=== PATIENT | female | born 1940 | race Caucasian/White ===

== ENCOUNTER → 2024-08-07 | Outpatient (CLI) | payer MEDICARE ==
--- NOTE | 2024-08-11 08:51 | HMCSR ---
APPROVED REPORT EXAM: Two-dimensional and M-mode echocardiogram with Doppler and color Doppler. WITH VALSALVA INDICATION ICD: Cardiac murmur, unspecified R01.1 2D Dimensions RVDd4.0 cmLVEF(%)55.3 (>50%)LVED Vol(simp.)101.0 mL IVSd0.9 (0.7-1.1cm)FS(%)28 %LVES Vol(simp.)44.0 mL LVDd4.2 (3.8-5.6cm)LA (2D)3.5 (1.6-4.0cm)LVEF(%, simp.)57 % PWd0.9 (0.7-1.1cm)Ao Root(2D)3.2 (2.0-3.7cm)LA ESV INDEX (BP)57.13 mL/m2 LVDs3.0 (2.5-4.0cm)LVOT diam2.1 (1.8-2.4cm) IVC diam1.6 cm Aortic Valve AoV Vmax2.0 m/Breanne Peak GR15.8 mmHgLVOT Vmax0.8 m/s AoV VTI0.5 mAo Mean GR8.8 mmHgLVOT VTI0.20 m NALLELY (VMAX)1.6 cm2AVA (VTI) 1.6 cm2 Mitral Valve MV E Vmax82.8 cm/sDECEL Innb079 ms MV A Vmax93.8 cm/s E/A ratio0.9 MR Max PG135 mmHg TDI E/E' Dxepiv52.9E/E' Kyatgqm06.2 Pulmonary Valve PV Vmax0.9 m/sPV VTI0.18 mPV Mean GR2 mmHg PV Peak GR3.1 mmHgPI End Yasemin. Kamron 0.8 cm/s Tricuspid Valve TR Vmax2.4 m/sRAP (EST) 3 lgEfMTTJ78.8 mmHg TR Peak GR22.8 mmHg Left Ventricle Left ventricular cavity size is normal. There is normal left ventricular wall thickness. LVEF is 55-6 0%. Stage I diastolic dysfunction. Right Ventricle The right ventricle is normal size. The right ventricular systolic function is normal. Atria The left atrium is severely dilated. The right atrium is borderline dilated. Aortic Valve Aortic valve is trileaflet. The aortic valve is calcified and displays decreased opening. No aortic r egurgitation is present. Aortic scleroiss. NALLELY 1.6 cm2, PV 2 m/s,mean pressure gradient of 8.8 mmHg. Mitral Valve Mitral valve leaflets are mildly sclerotic but open well. Mitral regurgitation is moderate. There is no mitral valve stenosis. Tricuspid Valve The tricuspid valve leaflets appear normal. There is trace tricuspid regurgitation. Pulmonic Valve The pulmonic valve leaflets appear normal. There is trace pulmonic valvular regurgitation. Great Vessels The aortic root is normal in size. IVC is normal in size and collapses >50% with inspiration. Pericardium No pericardial effusion. Conclusion Left ventricular cavity size is normal. LVEF is 55-60%. Stage I diastolic dysfunction. The right ventricle is normal size. The right ventricular systolic function is normal. The left atrium is severely dilated. The right atrium is borderline dilated. Aortic valve is trileaflet. The aortic valve is calcified and displays decreased opening. Aortic scleroiss. NALLELY 1.6 cm2, PV 2 m/s,mean pressure gradient of 8.8 mmHg. Mitral regurgitation is moderate. There is trace tricuspid regurgitation. No pericardial effusion.
== END | disposition home or self-care (01) ==
LOC: SHCH 10:57
PROVIDERS: ATTEND Student in an Organized Health Care Education/Training Program
DX: I08.0 Rheumatic disorders of both mitral and aortic valves (principal); R01.1 Cardiac murmur, unspecified
CPT/HCPCS: 93306

== ENCOUNTER 2025-01-06 07:12 | Observation (INO) | payer MEDICARE ==
[2025-01-05 14:44] VITALS: BP 162/57; PULSE 67; RESP 14; TEMP 97.5
[2025-01-05 14:46] LABS: IMMATURE GRANULOCYTE ABSOLUTE 0.03 K/uL (0-1); NUCLEATED RED BLOOD CELLS 0.0 % (0.0-0.19); PLATELET COUNT (AUTO) 215 K/uL (130-400); RED BLOOD CELL COUNT(AUTO) 4.21 MIL/uL (4.00-5.50); RED CELL DISTRIBUTION WIDTH 13.9 % (11.0-15.5); WHITE BLOOD COUNT (AUTO) 6.2 K/uL (4.8-10.8)
[2025-01-05 14:52] LABS: APPEARANCE,URINE CLOUDY (CLEAR); GLUCOSE, URINE (UA) NEGATIVE (NEGATIVE); LEUKOCYTE ESTERASE ,URINE NEGATIVE Leu/uL (NEGATIVE); NITRATE,URINE NEGATIVE (NEGATIVE); OCCULT BLOOD,URINE NEGATIVE (NEGATIVE)
[2025-01-05 14:56] LABS: INR 1.0 (0.85-1.15)
[2025-01-05 14:58] LABS: CREATININE 0.6 mg/dL (0.5-1.0); GLOMERULAR FILTR. RATE CALC 87.0 mL/min (>90); GLUCOSE,RANDOM 89.0 mg/dL (70-105); SODIUM SERUM 142.0 mmol/L (136-145); UREA NITROGEN, BLOOD 15.0 mg/dL (7-18)
[2025-01-05 15:08] LABS: ADD UA MICROSCOPIC YES
--- NOTE | 2025-01-05 15:10 | NUR ---
RE: IS INITIAL IS INITIAL TEACHING DONE BY RT GAIL DURING PREOP.
[2025-01-05 15:11] LABS: SQUAMOUS EPITHELIAL CELL,UR RARE /HPF (0-2)
--- NOTE | 2025-01-05 16:30 | NUR ---
RE: LABS REPORTED UA RESULTS TO DR BETH, RECEIVED ORDERS FOR GENTAMICIN IVPB X 1 DOSE IN OR HOLDING.
[2025-01-06] VITALS (24 sets, daily range): BP systolic 115–173; BP diastolic 50–94; PULSE 63–88; RESP 15–20; TEMP 97.1–98.2; O2SAT 96
[~2025-01-06] VITALS: Ht 165.1 cm; Wt 71.7 kg
[~2025-01-06 07:12] MED LIST: SIMV-43 PO
[2025-01-06] MEDS ORDERED: VANCOMYCIN 500MG+NS 100ML 100 ML IV ONE (07:17)
[2025-01-06] MEDS ORDERED: LIDOCAINE PF 100MG/5ML (2%) SYRINGE 5ML ONE ×2 (10:38→10:39)
[2025-01-06] MEDS ORDERED: SUCCINYLCHOLINE CHLORIDE 20 MG/ML 10 ML VIAL ONE (10:38)
[2025-01-06] MEDS ORDERED: GLYCOPYRROLATE 0.2 MG/ML 5 ML VIAL ONE (10:38)
[2025-01-06] MEDS ORDERED: NEOSTIGMINE METHYLSULFATE 1MG/ML IV ONE (10:38)
[2025-01-06] MEDS ORDERED: TRANEXAMIC ACID 1000MG/10ML ONE (11:07)
[2025-01-06] MEDS: VANCOMYCIN 500MG VIAL IJ ONE (11:54)
[2025-01-06] MEDS ORDERED: PoTASSium chl 10% ELIXIR 20MEQ 20 MEQ/15 ML UDCUP PO PRN (13:30)
[2025-01-06] MEDS ORDERED: PoTASSium chloRIDE 20MEQ ER 20 MEQ ERTAB PO PRN (13:30)
[2025-01-06] MEDS ORDERED: FERROUS FUMARATE 324 MG TABLET PO PRN (13:30)
[2025-01-06] MEDS ORDERED: CALCIUM CARB 500MG PO PRN (13:30)
--- NOTE | 2025-01-06 13:34 | OP ---
Operative Note: DATE OF PROCEDURE: 01/06/25 SURGEON: FAITH BETH MD AUTO BODY MAN: [Gomez Lee [facility]; Annabelle Dolan [facility]] ANESTHESIA: [General anesthesia plus regional block] ANESTHESIOLOGIST/CLINICAL PATHOLOGIST: [Dr. Mendoza] PREOPERATIVE DIAGNOSIS: [Left hip osteoarthritis] POSTOPERATIVE DIAGNOSIS: [Same] IMPLANTS: [BIOMET. Taperloc femoral stem, high offset size 12 mm. Standard femoral head size 36 mm. G7 acetabular cup size 54 mm. G7 high wall liner size 36 mm inner diameter] PROCEDURE: [Left total hip arthroplasty] ESTIMATED BLOOD LOSS: [250 mL] INDICATIONS: [Elderly female with history of severe pain to the left hip that has a longer responded to conservative treatment. Pain due to osteoarthritis. The patient is brought to the operating room for a left total hip arthroplasty, procedure that she understood, risks, benefits and possible complications and agreed to sign the consent form] DESCRIPTION OF PROCEDURE: [After adequate general anesthesia was achieved and regional block obtained the patient was placed in the lateral decubitus with the use of the beanbag and hip holders. The left lower extremity was prepped and draped in the usual manner after x-rays taken with the C-arm were used to check the position of the pelvis. After anatomic landmarks were identified we proceeded to make an incision in the skin centered on the greater trochanter and with a slight curve posteriorly followed by dissection of the subcutaneous tissue with the use of the Bovie cautery. The tensor fascia aubrey and gluteus jessica fascia were then opened longitudinally and the fibers of the gluteus muscle were split manually entering into the deep space applying then the Charnley retractor. The posterior border of the gluteus medius was identified and elevated and a curved Hohmann retractor was inserted underneath to be able to expose the gluteus minimus and short external rotators. The interval between the piriformis and gluteus minimus was open with the use of the Bovie cautery and then the rotators and capsule were detached from their femoral neck insertion and retracted posteriorly entering into the hip joint. At this point a marker was applied in the iliac bone just superior to the acetabulum with the use of drill guide to be able to check the offset and the length of the extremity at the level of the trochanter. Once the marker was made this was passed to the back table. We then proceeded to dislocate the hip by flexing the hip and then internally rotating it and after retractors were applied to the base of the femoral neck we proceeded to use the oscillating saw to cut the neck at this level. Hohmann retractors were then applied anteriorly and posteriorly to the acetabulum removing then the labrum and foveal tissue. We proceeded to ream the acetabulum medializing it obtaining adequate cortico-cancellous bone. After irrigation of the acetabulum was completed we proceeded then to apply the final component and x-rays were taken correcting the orientation of the acetabulum to its final position. Then a trial liner was inserted. We then proceeded to use a box osteotome to enter the canal followed by insertion of the canal finder and then we proceeded to broach from size 4 up to above-mentioned size. At this point we removed the last broach and packed the canal for hemostasis and after the retractors were removed we proceeded then to bring the hip into extension. as well as a trial femur and then we proceeded to apply the trial femoral heads reducing the hip and taken x-rays until we identify the adequate size component using the marker to check the length and offset as well as clinically using the shuck test and measuring the leg length. Once we were satisfied we proceeded to remove the components from the femur and the acetabular trial liner after dislocating the hip and after copious irrigation of the joint was completed we then proceeded to apply the final liner followed by the insertion of the final femoral stem femoral head. Once the hip was reduced we used a marker once again and the leg length and offset were normal and clinically the patient had normal length, negative shuck test and x-rays reveal adequate leg length compared to the opposite hip. The joint was then copiously irrigated with a diluted Betadine solution followed by irrigation with antibiotic solution with jet lavage once again and we then proceeded to take final x-rays and then to close the wound first with approximation of the capsule with #1 Vicryl simple stitches followed by approximation of the short external rotators with #2 PDS suture passing the sutures through the bone. The Charnley retractor was then removed and the gluteus jessica fascia was closed with a #1 Vicryl running stitch and the tensor fascia aubrey with #1 Vicryl crossed stitches. The subcutaneous tissue was closed with #2 Monocryl inverted stitches and the skin was closed with 3-0 Monocryl subcuticularly. A suction dressing was then applied to the incision and the drapes were then removed the patient being placed in the supine position. Leg length was checked and noted to be adequate. The patient was then transferred to a hospital bed and taken to recovery room for follow-up by anesthesia. There were no complications during the procedure.] FAITH BETH MD Jan 06, 2025 13:34
[2025-01-06] MEDS: TRANEXAMIC ACID 1000MG/10ML ONE (14:25)
--- NOTE | 2025-01-06 15:00 | NUR ---
RT contacted for IS post procedure
--- NOTE | 2025-01-06 15:00 | NUR ---
arrived from recovery patient alert and oriented x4, vitals stable, on 3L oxygen via nasal cannula, patient arrived rating pain to LT hip 02/11, neurovascular assessment completed (see documentation)
[2025-01-06] MEDS: LACTATED RINGERS 1000ML 1,000 ML IV ONE (16:27)
--- NOTE | 2025-01-06 16:45 | NUR ---
Attempted PT eval with patient. Pt noted to be sitting up in bed eating her tray of clear liquids. When I asked patient her pain level she stated " I am miserable I dont know if I am in Hell or pergatory" . When I asked her a pain number 0-10 she stated "9" . Then she reports that she told the nurse twice and that the nurse has not come back. I applied ice, SCDS and discussed DC plan with patient. I asked nurse about pain medications and she reports that patient was given medications 1 hour prior, and that she will give another medicine now.
[2025-01-06] MEDS: 0.9%NACL 1000ML 1,000 ML IV SCH (16:49)
--- NOTE | 2025-01-06 17:51 | NUR ---
PT eval completed. Pt needs max cues and redirection. Wants to wait on PT for her belongings, to turn the TV up, to get dressed etc. Education provided that in order to DC home she will need to complete PT eval. Pt agrees. Pt walks to and has several episodes of buckling with therapist assist to prevent fall. Pt voided then return to bed. Education provided on how to use call carreno, POC,DC plan, medication regimen, use of ice ,what SCDS are for and how to use call carreno as well as bed controls . Pt should not walk in night but use BSC since she is fall risk.
[2025-01-06] MEDS: FAMOTIDINE 20MG TAB PO SCH (19:51)
[2025-01-06] MEDS: ASPIRIN 81 MG EC TAB PO SCH (19:51)
[2025-01-07] VITALS (7 sets, daily range): BP systolic 107–137; BP diastolic 49–69; PULSE 70–96; RESP 16–20; TEMP 97.7–98.6; O2SAT 99
[2025-01-07 05:43] LABS: NUCLEATED RED BLOOD CELLS 0.0 % (0.0-0.19); PLATELET COUNT (AUTO) 179.0 K/uL (130-400); RED BLOOD CELL COUNT(AUTO) 3.29 MIL/uL (4.00-5.50); RED CELL DISTRIBUTION WIDTH 13.9 % (11.0-15.5); WHITE BLOOD COUNT (AUTO) 7.8 K/uL (4.8-10.8)
[2025-01-07 05:58] LABS: CREATININE 0.6 mg/dL (0.5-1.0); GLOMERULAR FILTR. RATE CALC 87.0 mL/min (>90); GLUCOSE,RANDOM 110.0 mg/dL (70-105); SODIUM SERUM 139.0 mmol/L (136-145); UREA NITROGEN, BLOOD 14.0 mg/dL (7-18)
--- NOTE | 2025-01-07 07:52 | PN ---
Ortho postop day one. This morning the patient is awake alert and oriented. Reporting little to no pain. Vital signs have been stable. She has been afebrile. She is voiding on her own without difficulty. Laboratory results reviewed noted to have a drop in hemoglobin and hematocrit as expected. Currently patient is asymptomatic we will continue to observe and treat per protocol as necessary. Reinforced incentive spirometry. She has bilateral SCD compression sleeves on. Ice present to the op-site. Dressing is intact. Distal neurovascular intact. Negative Homans. Ambulated within the confines of her room and to the restroom yesterday and is pending further physical therapy this morning. She is anticipating going home with a home health/APC/PT discussed with the patient to not allow her cats to sleep with her and it be best if she has clean sheets since her cats do sleep with her to avoid any infection. Patient voiced understanding. Assessment: Status post left total hip arthroplasty. Acute postoperative blood loss anemia. Plan: Continue with Dr. Macias total hip arthroplasty protocol and discharge planning. Acute postoperative blood loss anemia addressed with the protocol Vitals/Labs Vital Signs Date Time Temp Pulse Resp B/P (MAP) Pulse Ox O2 Delivery O2 Flow Rate FiO2 01/07/25 07:28 97.9 74 18 131/66 95 Room Air 01/06/25 20:45 3.0 01/06/25 20:00 21 Laboratory Tests 01/07/25 05:05 Medications Current Medications Gentamicin Sulfate 1 each ONCE IV; Start 01/06/25 at 07:30; Stop 01/05/25 at 16:59; Status DC Gentamicin Sulfate/Sodium Chloride 100 ml @ 200 mls/hr ONCE ONCE IV Last administered on 01/06/25at 08:31; Start 01/05/25 at 17:00; Stop 01/05/25 at 17:29; Status DC Cefazolin Sodium 1 gm STK-MED ONCE .ROUTE; Start 01/06/25 at 07:17; Stop 01/06/25 at 07:17; Status DC Vancomycin HCl 100 ml @ As Directed STK-MED ONCE IV; Start 01/06/25 at 07:17; Stop 01/06/25 at 07:17; Status DC Cefazolin Sodium 2 gm STK-MED ONCE .ROUTE; Start 01/06/25 at 08:28; Stop 01/06/25 at 08:29; Status DC Lactated Ringer's 1,000 ml @ As Directed STK-MED ONCE IV; Start 01/06/25 at 08:29; Stop 01/06/25 at 08:29; Status DC Lidocaine HCl 100 mg STK-MED ONCE .ROUTE; Start 01/06/25 at 10:38; Stop 01/06/25 at 10:38; Status DC Ondansetron HCl 4 mg STK-MED ONCE .ROUTE; Start 01/06/25 at 10:38; Stop 01/06/25 at 10:38; Status DC Succinylcholine Chloride 200 mg STK-MED ONCE .ROUTE; Start 01/06/25 at 10:38; Stop 01/06/25 at 10:38; Status DC Glycopyrrolate 1 mg STK-MED ONCE .ROUTE; Start 01/06/25 at 10:38; Stop 01/06/25 at 10:39; Status DC Propofol 200 mg STK-MED ONCE IV; Start 01/06/25 at 10:38; Stop 01/06/25 at 10:39; Status DC Neostigmine Methylsulfate 10 mg STK-MED ONCE IV; Start 01/06/25 at 10:38; Stop 01/06/25 at 10:39; Status DC Rocuronium [place] 50 mg STK-MED ONCE .ROUTE; Start 01/06/25 at 10:39; Stop 01/06/25 at 10:39; Status DC Fentanyl Citrate 100 mcg STK-MED ONCE .ROUTE; Start 01/06/25 at 10:39; Stop 01/06/25 at 10:39; Status DC Lidocaine HCl 100 mg STK-MED ONCE .ROUTE; Start 01/06/25 at 10:39; Stop 01/06/25 at 10:39; Status DC Phenylephrine HCl 10 mg STK-MED ONCE IV; Start 01/06/25 at 10:53; Stop 01/06/25 at 10:54; Status DC Tranexamic Acid 1,000 mg STK-MED ONCE .ROUTE; Start 01/06/25 at 11:07; Stop 01/06/25 at 11:07; Status DC Cefazolin Sodium 2 gm STK-MED ONCE IVPB Last administered on 01/06/25at 11:19; Start 01/06/25 at 11:19; Stop 01/06/25 at 11:49; Status DC Tranexamic Acid 1,000 mg STK-MED ONCE IV Last administered on 01/06/25at 11:25; Start 01/06/25 at 11:25; Stop 01/06/25 at 11:49; Status DC Cefazolin Sodium 3 gm STK-MED ONCE IVPB Last administered on 01/06/25at 11:38; Start 01/06/25 at 11:38; Stop 01/06/25 at 11:49; Status DC Vancomycin HCl 500 mg STK-MED ONCE IJ Last administered on 01/06/25at 11:54; Start 01/06/25 at 11:54; Stop 01/06/25 at 11:55; Status DC Ropivacaine 150 mg STK-MED ONCE .ROUTE; Start 01/06/25 at 13:08; Stop 01/06/25 at 13:08; Status DC Dexamethasone Sodium Phosphate 4 mg STK-MED ONCE .ROUTE; Start 01/06/25 at 13:17; Stop 01/06/25 at 13:17; Status DC Sodium Chloride 1,000 ml @ 100 mls/hr Q10H IV Last administered on 01/06/25at 16:49; Start 01/06/25 at 13:30; Stop 01/07/25 at 13:29 Polyethylene Glycol 17 gm DAILY PO; Start 01/07/25 at 09:00; Stop 02/06/25 at 08:59 Bisacodyl 10 mg DAILY PRN RC; Start 01/09/25 at 13:30; Stop 02/08/25 at 13:29 Ketorolac Tromethamine 15 mg Q6H PRN IV Last administered on 01/06/25at 16:47; Start 01/06/25 at 13:30; Stop 01/11/25 at 13:29 Famotidine 20 mg BID PO Last administered on 01/06/25at 19:51; Start 01/06/25 at 21:00; Stop 02/05/25 at 20:59 Ferrous Fumarate 324 mg DAILY PRN PO; Start 01/06/25 at 13:30; Stop 02/05/25 at 13:29 Temazepam 15 mg HS PRN PO; Start 01/06/25 at 13:30; Stop 02/05/25 at 13:29 Calcium Carbonate 500 mg Q12H PRN PO; Start 01/06/25 at 13:30; Stop 02/05/25 at 13:29 Diphenhydramine HCl 25 mg Q6H PRN IVP; Start 01/06/25 at 13:30; Stop 02/05/25 at 13:29 Ondansetron HCl 4 mg Q6H PRN IVP; Start 01/06/25 at 13:30; Stop 02/05/25 at 13:29 Cefazolin Sodium 2 gm Q8H IVP Last administered on 01/07/25at 02:44; Start 01/06/25 at 18:30; Stop 01/07/25 at 02:31; Status DC Potassium Chloride 100 ml @ 100 mls/hr AD PRN IV; Start 01/06/25 at 13:30; Stop 02/05/25 at 13:29 Potassium Chloride 20 meq AD PRN PO; Start 01/06/25 at 13:30; Stop 02/05/25 at 13:29 Potassium Chloride 20 meq AD PRN PO; Start 01/06/25 at 13:30; Stop 02/05/25 at 13:29 Oxycodone HCl 5 mg Q4H PRN PO; Start 01/06/25 at 13:30; Stop 01/13/25 at 13:29 Oxycodone HCl 10 mg Q4H PRN PO Last administered on 01/06/25at 15:26; Start 01/06/25 at 13:30; Stop 01/13/25 at 13:29 Tramadol HCl 50 mg Q6H PRN PO; Start 01/06/25 at 13:30; Stop 01/11/25 at 13:29 Acetaminophen 1,000 mg Q8H PO Last administered on 01/07/25at 05:01; Start 01/06/25 at 13:30; Stop 02/05/25 at 13:29 Aspirin 81 mg BID PO Last administered on 01/06/25at 19:51; Start 01/06/25 at 21:00; Stop 02/05/25 at 20:59 Fentanyl Citrate 100 mcg STK-MED ONCE .ROUTE Last administered on 01/06/25at 14:16; Start 01/06/25 at 14:13; Stop 01/06/25 at 14:13; Status DC Tranexamic Acid 1,000 mg STK-MED ONCE .ROUTE Last administered on 01/06/25at 14:25; Start 01/06/25 at 14:21; Stop 01/06/25 at 14:21; Status DC Simvastatin 20 mg HS PO Last administered on 01/06/25at 21:29; Start 01/06/25 at 21:00; Stop 02/05/25 at 20:59 COLTEN JONES NP Jan 07, 2025 07:52
--- NOTE | 2025-01-07 11:27 | NUR ---
[facility] CM MET WITH PT YESTERDAY EVENING, INITIAL ASSESSMENT DONE. PATIENT IS INDEPENDENT PRIOR TO SURGERY, LIVES AT HOME WITH HER SPOUSE. PT HAS OWN CURRENT WALKER AT HOME PRIOR TO SURGERY, DENIES ANY OTHER EQUIPMENT/SERVICES. FEELS SAFE TO GO BACK HOME, STILL DRIVE, SON AVAILABLE IN CASE OF EMERGENCY BY PHONE, ARRANGES OWN NEEDS, FRIENDS ABLE TO ASSIST WITH TRANSPORTATION NECESSARY. DISCUSSED MD RECOMMENDATIONS FOR HOME W/HH FOR PT, PATIENT ALREADY HAS A CURRENT WORKING WALKER, GIVEN IN [facility], PT AGREEABLE SIGNED CONSENT FOR [facility]. THIS CM SENT REQUEST TO [facility] YESTERDAY, AND RECEIVED APPROVAL THIS MORNING, HOWEVER PATIENT REQUESTED FOR CM TO RE-VISIT AND VERBALIZED SHE CHANGED HER MIND. HER IS CURRENTLY AT [facility] AND SHE VERBALIZED PT TALKED TO HER THIS MORNING AND VERBALIZED IT WOULD BE SAFER FOR HER TO GO TO SHORT TERM REHAB, PT VERBALIZED SHE WOULD LIKE TO DO SHORT TERM REHAB AT [facility]. PT SIGNED CONSENT DOMINIC. INFORMED PT WILL SEND TO [facility] AND UPDATE DR BETH OF PT'S REQUEST. DR BETH UPDATED. [facility] ONCE APPROVED. CM TO CONTINUE TO FOLLOW UP. Addendum: 01/07/25 at 1154 by EDUARDO CASTORENA LVN Amended: Links added.
--- NOTE | 2025-01-07 16:45 | NUR ---
Ortho Coordinator: Teaching regarding DVT and pneumonia prevention, pain expectations and pain management. Patient in bed. Patient eating dinner. Patient reports pain currently controlled, B SCD sleeves in place and functioning. HOLLEY dressing dry and intact, functioning as evidenced by light blinking green. Incentive spirometer at bedside. Patient verbalized proper frequency of use of incentive spirometer, rationale provided. Patient return demonstrated proper foot flexion and extension exercises, rationale provided. Pain management strategy reviewed. Patient agreed to call out for pain medication using numeric pain scale and type of pain. Patient intends to discharge to rehab. Reviewed expectations for rehab. Questions answered. Patient instructed to continue pre-medicating prior to physical therapy and periods of high activity, continue incentive spirometer until reaches pre-surgery activity level and to continue foot flexion and extension exercises once discharged. Set expectation for patient to shower today, rationale provided. Reviewed care of HOLLEY dressing, questions answered. Patient verbalized understanding to all instructions. [id number] Discussed plan of care with primary care team.
[2025-01-08 03:48] VITALS: BP 155/56; PULSE 83; RESP 20; TEMP 98
[2025-01-08 07:35] VITALS: O2SAT 97
[2025-01-08 07:48] VITALS: BP 96/64; PULSE 89; RESP 20; TEMP 98.3
[2025-01-08 08:15] VITALS: BP 136/60; PULSE 87
[2025-01-08 11:08] VITALS: BP 123/65; PULSE 81; RESP 18; TEMP 98.3
[2025-01-08] MEDS ORDERED: AEC81 PO (17:03)
[2025-01-08] MEDS ORDERED: OXYC-38 PO (17:03)
--- NOTE | 2025-01-08 17:11 | DS ---
DISCHARGE SUMMARY [Date of admission: 01/06/2025 Date of discharge: 01/08/2025 Final diagnosis: Left hip osteoarthritis Surgical procedures: Left total hip arthroplasty on 01/06/2025 Summary of History and Physical: The patient is an 84 year-old female with history of severe arthrosis to the left hip that has been present for several years and has been treated conservatively with no longer adequate response to treatment. The patient is being admitted for total hip arthroplasty. Previous medical history: Hypercholesterolemia Previous surgical history: Tonsillectomy, bilateral total knee arthroplasty Family history: Heart disease, cancer Social history: Negative for use of tobacco or alcohol. Allergies: Sulfa drugs Review of system: Negative on admission Hospital course: The patient was admitted and taken to the operating room for a left total hip arthroplasty, procedure that went uneventful. Postoperatively the patient remained hemodynamically stable and afebrile. The patient received antibiotic and anticoagulation prophylaxis as per protocol. The patient was evaluated by physical therapy and started rehabilitation treatment with ambulation with the use of walker, weightbearing as tolerated, posterior hip precautions, range of motion exercises and bed transfers. The patient was also evaluated by case management and arrangements were made for discharge . The patient tolerated diet well. On postop day #2 all the arrangements were completed for her to be discharged to a nursing facilityand the patient was dismissed . Condition on discharge: Good Disposition: The patient will be dismissed to a correction . Follow-up will be done at the office in 3 weeks. The patient is to continue with physical therapy and rehabilitation at the facility and be ambulatory with the use of a walker, weightbearing as tolerated and continue with hip precautions. Continue taking pain medication as instructed as well as anticoagulation prophylaxis. Continue with home medications also as instructed and continue with pre admission diet.] FAITH BETH MD, JOSE A MD Jan 08, 2025 17:11
--- NOTE | 2025-01-08 19:50 | NUR ---
DISCHARGE INSTRUCTION PROVIDED TO PATIENT. PATIENT VERBALIZED UNDERSTANDING . REPORT CALLED TO [facility] ,SPOKE WITH NURSE BLANTON .
== END 2025-01-08 18:15 ==
LOC: DAH 07:12 → DAHIP 07:13 → DAH 07:13 → 4AH 15:00
PROVIDERS: ADMIT Orthopaedic Surgery; ATTEND Orthopaedic Surgery
DX: M16.12 Unilateral primary osteoarthritis, left hip (principal); M25.552 Pain in left hip; E78.00 Pure hypercholesterolemia, unspecified; I10 Essential (primary) hypertension; Z79.899 Other long term (current) drug therapy; Z98.890 Other specified postprocedural states
CPT/HCPCS: 80048 ×2; 85025; 85610; 86850; 86900; 86901; 87086; 81001; 36415 ×2; 87641; 97161 ×3; 27130; 96365; 96366 ×2; 96375; 96367; 88311; 88304; 73503; 97116 ×5; 97530 ×6; 85027; J1580; J1100; G0378 ×53; A4600 ×2; A4223 ×2; C1713 ×2; A4663; J0690 ×6; J7120; J3010 ×2; J3490 ×5; J0330; J2003 ×2; J2704; J2405; J2710; J2795; J1885; J2371; J3373 ×2; A4649 ×4; A9272; A4930 ×3; C1776; A5120; A4215 ×2; A4213; A4222; A4221; A4216

== ENCOUNTER 2025-01-22 18:10 | Inpatient (IN) | payer MEDICARE ==
[~2025-01-22] VITALS: Ht 165.1 cm; Wt 73.9 kg
[~2025-01-22 18:10] MED LIST changes: +AEC81 PO; +OXYC-38 PO
--- NOTE | 2025-01-22 18:19 | ERN ---
ED Note History of Present Illness Stated Complaint: FALL Chief Complaint: Mechanical Fall Time Seen by MD: 18:15 Dictation: PATIENT IS AN 84-YEAR-OLD FEMALE COMING IN VIA EMS WITH SAME LEVEL TRIP AND FALL 1 HOUR PRIOR TO ARRIVAL. SHE LANDED ON HER LEFT HIP WHICH WE WILL HAD RECENT SURGERY BY DR. FAITH BETH TWO WEEKS AGO. SHE IS HAVING SEVERE LEFT HIP PAIN WITH SHORTENING AND ROTATION OF THE LEFT HIP ALSO LEFT KNEE PAIN. DISTAL NEUROVASCULAR CMS GROSSLY INTACT. NO HEAD INJURY NO BACK PAIN NO BLOOD THINNERS AND NO TRAUMA ALERT CRITERIA AT THIS TIME. Allergies: Coded Allergies: Sulfa (Sulfonamide Antibiotics) (Unverified Allergy, Unknown, 01/05/25) Home Meds Active Scripts Oxycodone HCl/Acetaminophen (Percocet 5-325 mg Tablet) 5 Mg-325 Mg Tablet, 1-2 EACH PO Q8H for ACUTE POST-OP PAIN (G89,18) for 7 Days, #42 TAB 0 Refills Prov:FAITH BETH MD 01/08/25 Aspirin (ASPIRIN 81 MG ECTAB) 81 Mg Ectab, 81 MG PO BID for DVT PROPHYLAXIS for 30 Days, #60 TAB.EC 0 Refills Prov:FAITH BETH MD 01/08/25 Reported Medications Simvastatin (Simvastatin) 20 Mg Tablet, 1 TAB PO HS for 30 Days, #30 TAB 0 Refills 01/22/25 Simvastatin (Simvastatin) 20 Mg Tablet, 20 MG PO HS, TAB 01/05/25 Past Medical History Past Medical History: High Cholesterol Surgical History: Other Surgical History Other: BILATERAL KNEE REPLACEMENT History: Not Applicable RN Note Reviewed/Agreed w/PFSH: Yes Review of System Dictation CONSTITUTIONAL: NEGATIVE EXCEPT FOR HPI HEAD/FACE: NEGATIVE EXCEPT FOR HPI EENT: NEGATIVE EXCEPT FOR HPI RESPIRATORY: NEGATIVE EXCEPT FOR HPI GASTROINTESTINAL/ABDOMINAL: NEGATIVE EXCEPT FOR HPI GENITOURINARY: NEGATIVE EXCEPT FOR HPI MUSCULOSKELETAL: NEGATIVE EXCEPT FOR HPI LEFT HIP AND KNEE PAIN INTEGUMENTARY: NEGATIVE EXCEPT FOR HPI NEUROLOGICAL/PSYCH: NEGATIVE EXCEPT FOR HPI HEMATOLOGIC/LYMPHATIC: NEGATIVE EXCEPT FOR HPI ALL SYSTEMS NEGATIVE, EXCEPT NOTED ABOVE. 13 POINT REVIEW OF SYSTEMS ASSESSED AND ALL NEGATIVE EXCEPT FOR ABOVE. Initial Vital Sign VS Vital Signs Date Time Temp Pulse Resp B/P (MAP) Pulse Ox O2 Delivery O2 Flow Rate FiO2 01/22/25 18:11 98.2 78 18 167/69 99 Room Air 0 01/22/25 20:06 21 Physical Exam Dictation VITAL SIGNS REVIEWED GENERAL APPEARANCE: ALERT, ORIENTED X 3, MILD ACUTE DISTRESS, WELL DEVELOPED, NOURISHED. HEAD AND FACE: NON-TRAUMATIC. NO TRAUMA TO HEAD EYES: PERRL, PINK CONJUNCTIVAS, EYELID NO TRAUMA, ANTERIOR CHAMBER WITH ARCUS SENILIS. EARS: PINNAS INTACT AND NO SIGNS OF TRAUMA OR ERYTHEMA EAR CANALS CLEAR AND NO DISCHARGE TM NO ERYTHEMA NOSE: NO DISCHARGE, NO BLEEDING. OROPHARYNX: MOUTH NORMAL, TONGUE PINK, PHARYNX CLEAR,NO ERYTHEMA, TONSILS NO EXUDATES, NO ABSCESSES NOTED, MUCOUS MEMBRANE MOIST NECK: SUPPLE, NON-TENDER, NO THYROMEGALY, NO MASSES, NO JVD, NO BRUITS BREAST:DEFERRED CHEST:NO TENDERNESS, NO CREPITUS, NO PARADOXICAL MOVEMENT, NO RETRACTIONS LUNGS:CLEAR, WELL-VENTILATED, SYMMETRIC, NO RALES, NO WHEEZING, NO RHONCHI, NO STRIDOR, GOOD BREATH SOUNDS BILATERALLY HEART: REGULAR RATE, REGULAR RHYTHM, NO MURMUR, NO GALLOPS VASCULAR: NO PERIPHERAL EDEMA, ABDOMEN: SOFT, POSITIVE BOWEL SOUNDS, NONDISTENDED, NO GUARDING, NONTENDER, NO REBOUND, NO MASSES NO HEPATOMEGALY, NO SPLENOMEGALY, NO SHAW'S SIGN, NO HERNIAS. RECTAL: DEFERRED GENITAL: DEFERRED NEUROLOGICAL: NORMAL SPEECH, MOTOR FUNCTION INTACT, SENSORY FUNCTION INTACT MUSCULOSKELETAL: NECK NONTENDER, FULL RANGE OF MOTION, BACK NONTENDER, FULL RANGE OF MOTION, NO SPINE PAIN EXTREMITIES: LEFT ANTEROLATERAL HIP AND PELVIC PAIN. SHORTENING AND ROTATION OF LEFT LEG INTERNALLY ALSO LEFT KNEE PAIN. DISTAL NEUROVASCULAR CMS GROSSLY INTACT. SKIN: COLOR PINK, DRY, NO TURGOR, NO RASH, NO LACERATIONS, NO ABRASIONS, NO CONTUSIONS. LYMPHATIC: DEFERRED Results (Laboratory/Radiology) Laboratory/Radiology Laboratory Tests Test 01/22/25 19:25 White Blood Count 9.3 K/uL (4.8-10.8) Red Blood Count 3.49 MIL/uL (4.00-5.50) L Hemoglobin 10.9 g/dL (12.0-16.0) L Hematocrit 33.2 % (36-48) L Mean Corpuscular Volume 95.1 fL (79-99) Mean Corpuscular Hemoglobin 31.2 pg (27.0-33.0) Mean Corpuscular Hemoglobin Concent 32.8 g/dL (32.0-36.0) Red Cell Distribution Width 14.0 % (11.0-15.5) Platelet Count 422 K/uL (130-400) H Mean Platelet Volume 10.3 fL (7.5-10.5) Immature Granulocyte % (Auto) 0.8 % (0-1) Neutrophils (%) (Auto) 79.8 % (40.0-77.0) H Lymphocytes (%) (Auto) 11.4 % (21.0-51.0) L Monocytes (%) (Auto) 6.8 % (3.0-13.0) Eosinophils (%) (Auto) 0.8 % (0.0-8.0) Basophils (%) (Auto) 0.4 % (0.0-5.0) Neutrophils # (Auto) 7.5 K/uL (1.8-7.7) Lymphocytes # (Auto) 1.1 K/uL (1.0-4.8) Monocytes # (Auto) 0.6 K/uL (0.1-1.0) Eosinophils # (Auto) 0.07 K/uL (0.00-0.70) Basophils # (Auto) 0.04 K/uL (0.00-0.20) Absolute Immature Granulocyte (auto 0.07 K/uL (0-1) Nucleated Red Blood Cells 0.0 % (0.0-0.19) Prothrombin Time 10.7 SEC (9.6-11.6) Prothromb Time International Ratio 1.01 (0.85-1.15) Activated Partial Thromboplast Time 26.2 SEC (26.3-35.5) L Sodium Level 140 mmol/L (136-145) Potassium Level 4.1 mmol/L (3.5-5.1) Chloride Level 104 mmol/L (101-111) Carbon Dioxide Level 31 mmol/L (21-32) Blood Urea Nitrogen 19 mg/dL (7-18) H Creatinine 0.7 mg/dL (0.5-1.0) Glomerular Filtration Rate Calc 84 mL/min (>90) Random Glucose 111 mg/dL (70-105) H Total Calcium 9.4 mg/dL (8.5-10.1) Labs Reviewed?: Yes EKG Comment: EKG SINUS RHYTHM/HEART RATE 72/RIGHT BUNDLE BRANCH BLOCK/LEFT VENTRICULAR HYPERTROPHY. ED Course ED Course Orders Procedure Category Date Status Time Hip Unilat 2-3vw Left RAD 01/22/25 Taken 18:16 Knee 3vws Lt RAD 01/22/25 Taken 18:16 Pelvis 1-2vws RAD 01/22/25 Logged 18:16 12 Lead Ekg Tracing- EKG 01/22/25 Logged Technical 19:11 Cbc With Differential LAB 01/22/25 Complete 19:12 Basic Metabolic Panel LAB 01/22/25 Complete 19:12 Pt And Ptt LAB 01/22/25 Complete 19:12 Type And Screen BBK 01/22/25 Complete 19:12 Morphine 2mg Syg PHA 01/22/25 In Process (Morphine 2mg Syg) 20:00 Ondansetron 4mg Inj PHA 01/22/25 In Process (Zofran 4mg Inj) 20:00 Nurse Driven Monroy LUIS ANGEL 01/22/25 In Process Removal Pro 20:07 Orthopedic Surgery CONPHYSVC 01/22/25 Transmitted Consult 20:08 Npo After Midnight LUIS ANGEL 01/22/25 Transmitted 20:08 Urinalysis Profile LAB 01/22/25 Verified 20:10 Morphine 4mg Ivp X1 PHA 01/22/25 Verified Dose 20:30 Current Medications Medications (Trade) Dose Ordered Sig/Vandana Route PRN Reason Start Time Stop Time Status Last Admin Dose Admin Morphine Sulfate (morPHINE 2MG SYG) 2 mg ONCE IVP 01/22/25 20:00 01/22/25 23:59 01/22/25 20:05 Ondansetron HCl (zoFRAN 4MG INJ) 4 mg ONCE IVP 01/22/25 20:00 01/22/25 23:59 01/22/25 20:05 Vital Signs Date Time Temp Pulse Resp B/P (MAP) Pulse Ox O2 Delivery O2 Flow Rate FiO2 01/22/25 20:06 77 18 175/76 98 Room Air* 0 21 01/22/25 18:11 98.2 78 18 167/69 99 Room Air 0 2017/SPOKE WITH DR. FAITH BETH/ORTHOPEDIC SURGEON AND HE IS AWARE OF THE FRACTURE AND HAS SEEN THE IMAGES. HE WANTS PATIENT HAVE NPO AFTER MIDNIGHT, PREOPERATIVE LABS TO INCLUDE COAGS CHEST X-RAY. SAID HE WILL SEE YOUR IN THE MORNING. THIS WAS EXPLAINED TO PATIENT AND SHE IS AWARE THAT SHE HAS REFRACTURED THE LEFT HIP. ALL QUESTIONS ANSWERED. SPOKE WITH [facility] AND REVIEWED EKG LABS X-RAYS AND SHE IS AWARE THE PATIENT IS NPO AFTER MIDNIGHT FOR SURGERY TOMORROW. Medical Decision Making MDM MDM: DIFFERENTIAL DIAGNOSIS: LEFT KNEE FRACTURE/LEFT HIP FRACTURE/ACS/AMI/ELECTR OLYTE IMBALANCE/DEHYDRATION/UTI RATIONALE: TESTS CONSIDERED AND ORDERED SECONDARY TO SHARED DECISION MAKING INCLUDE: LABS, ECG AND RADIOLOGY PREVIOUS OUTSIDE RECORDS REVIEWED: OLD ER VISITS. RISK OF COMPLICATION AND/OR MORBIDITY OR MORTALITY OF PATIENT MANAGEMENT: MODERATE MEDICATIONS-PER MEDICATION RECONCILIATION NEED FOR HOSPITALIZATION: PATIENT DOES MEET CRITERIA FOR HOSPITALIZATION. NPO AFTER MIDNIGHT FOR REVISION OF LEFT HIP REPLACEMENT TOMORROW NEED FOR EMERGENCY MAJOR/MINOR SURGERY: YES THERE ARE NO SOCIAL CONCERNS WITH THIS PATIENT. PRESCRIPTION DRUG MANAGEMENT PRESCRIPTIONS WILL INCLUDE SYMPTOMATIC CARE PATIENT'S PRIOR EXTERNAL MEDICAL RECORDS FROM OTHER ER VISITS WERE REVIEWED BY ME INDICATED. PRIOR TESTING AND RESULTS FROM PREVIOUS VISITS WERE REVIEWED. PRIOR TESTS WERE TAKEN INTO ACCOUNT WITH MEDICAL DECISION MAKING AND RESOURCE UTILIZATION, INDEPENDENT HISTORIAN/HISTORIANS WERE USED TO OBTAIN COMPLETE MEDICAL HISTORY. I INDEPENDENTLY INTERPRETED THE TEST THAT WERE PERFORMED, RESULTS WERE REVIEWED BY ME AND CONSIDERED FINDINGS ON RADIOLOGY IF ORDERED. MEDICAL MANAGEMENT AND EXAMINATION INTERPRETATION DISCUSSIONS WERE HAD BY ME WITH OTHER QUALIFIED HEALTHCARE PROFESSIONALS INDICATED FOR THE PATIENT'S CARE. DX & DISP Disposition: Discharge Departure Impression: Primary Impression: Fracture of left hip Additional Impressions: Status post left hip replacement, Contusion of left knee, initial encounter, Mild dehydration, Hyperglycemia, Fall, Chronic anemia Condition: Stable Referrals: ARBIL SALDANA MD (PCP) Time of Disposition: 20:20 I have reviewed the case, and I agree with, Diagnosis and Plan SANTIAGO CHANDRA CONTINUING EDUCATION DIRECTOR Jan 22, 2025 18:19
[2025-01-22 19:39] LABS: IMMATURE GRANULOCYTE ABSOLUTE 0.07 K/uL (0-1); NUCLEATED RED BLOOD CELLS 0.0 % (0.0-0.19); PLATELET COUNT (AUTO) 422 K/uL (130-400); RED BLOOD CELL COUNT(AUTO) 3.49 MIL/uL (4.00-5.50); RED CELL DISTRIBUTION WIDTH 14.0 % (11.0-15.5); WHITE BLOOD COUNT (AUTO) 9.3 K/uL (4.8-10.8)
[2025-01-22 19:55] LABS: CREATININE 0.7 mg/dL (0.5-1.0); GLOMERULAR FILTR. RATE CALC 84.0 mL/min (>90); GLUCOSE,RANDOM 111.0 mg/dL (70-105); SODIUM SERUM 140.0 mmol/L (136-145); UREA NITROGEN, BLOOD 19.0 mg/dL (7-18)
[2025-01-22 19:58] LABS: INR 1.01 (0.85-1.15)
[2025-01-22] MEDS ORDERED: SIMV-43 PO (20:14)
--- NOTE | 2025-01-22 20:37 | HMCIMG ---
EXAM: CR left knee, 3 View. CLINICAL HISTORY: LEFT KNEE PAIN STATUS POST SAME LEVEL TRIP FALL COMPARISON: None provided. FINDINGS: Cemented left total knee arthroplasty is in near anatomic alignment. No periprosthetic fractures appreciated. Left knee joint effusion. Infrapatellar bursitis. IMPRESSION: 1. No acute findings in the setting of left total knee arthroplasty. 2. Left knee joint effusion and infrapatellar bursitis. /[place]
--- NOTE | 2025-01-22 20:38 | HMCIMG ---
EXAM: CR left hip, 2 View. CLINICAL HISTORY: HIP PAIN WITH SHORTENING OR ROTATION LEFT LEG COMPARISON: None provided. FINDINGS: Mildly displaced periprosthetic fracture extending from the intertrochanteric region to the medial cortex of the proximal diaphysis. Recommend CT imaging for further evaluation. IMPRESSION: 1. Mildly displaced periprosthetic fracture of the left proximal femur extending from the intertrochanteric region to the proximal diaphysis. CT imaging recommended for further evaluation. /[place]
[2025-01-22] MEDS ORDERED: HYDROcodone/APAP 5/325 1 TAB TABLET PO PRN (21:00)
[2025-01-22] MEDS ORDERED: LACTULOSE 20 GM/30 ML UDCUP PO PRN (21:00)
--- NOTE | 2025-01-22 21:13 | HMCIMG ---
EXAM: CR Chest, 1 View. CLINICAL HISTORY: SOB/COUGH COMPARISON: None provided. FINDINGS: LUNGS: There is no mass, infiltrate, or acute pulmonary abnormality. PLEURAL SPACES: No pleural effusion or pneumothorax. MEDIASTINUM: Mild cardiomegaly. Pulmonary vasculature and interstitial markings are within normal limits. Atherosclerosis of the thoracic aorta. BONES: No acute osseous abnormality. IMPRESSION: 1. Mild cardiomegaly. /[place]
[2025-01-22 21:14] LABS: ADD UA MICROSCOPIC YES; APPEARANCE,URINE CLEAR (CLEAR); GLUCOSE, URINE (UA) NEGATIVE (NEGATIVE); LEUKOCYTE ESTERASE ,URINE NEGATIVE Leu/uL (NEGATIVE); NITRATE,URINE NEGATIVE (NEGATIVE); OCCULT BLOOD,URINE NEGATIVE (NEGATIVE)
[2025-01-22] MEDS: FAMOTIDINE 20MG VIAL IV SCH (21:14)
[2025-01-22] MEDS: LACTATED RINGERS 1000ML 1,000 ML IV SCH (21:15)
[2025-01-22 21:16] LABS: SQUAMOUS EPITHELIAL CELL,UR RARE /HPF (0-2)
--- NOTE | 2025-01-23 00:44 | HMCIMG ---
EXAM: CR Pelvis, 1 view CLINICAL HISTORY: Pain. Fall. COMPARISON: Radiograph of the left hip from the same date. FINDINGS: Mildly displaced periprosthetic fracture extending from the intertrochanteric region to the medial cortex of the proximal diaphysis. Mild osteopenia. Mild degenerative changes in the right hip, bilateral sacroiliac, and symphysis pubis joints. IMPRESSION: Mildly displaced periprosthetic fracture of the left proximal femur extending from the intertrochanteric region to the proximal diaphysis. Similar findings on the recent radiograph of the left hip. /[place]
--- NOTE | 2025-01-23 06:31 | EKG ---
[facility] Test Date: 2025-01-22 Test Time: 19:15:19 Pat Name: MOHSEN LA Department: EDHIP Room: ED 15 Gender: F Worm Picker: [id number] [phone] [id number] Requested By: SANTIAGO CHANDRA Order Number: [id number] Reading MD: Bobby Shearer Measurements Intervals [place] Rate: 72 P: 14 TN: 145 QRS: 16 QRSD: 149 T: 18 QT: 438 QTc: 479 Interpretive Statements Sinus rhythm Right bundle branch block Probable left ventricular hypertrophy No previous ECG available for comparison Electronically Signed On 01-23-2025 13:23:34 CDT by Bobby Shearer Please click the below link to view image of tracing.
[2025-01-23 07:44] LABS: IMMATURE GRANULOCYTE ABSOLUTE 0.05 K/uL (0-1); NUCLEATED RED BLOOD CELLS 0.0 % (0.0-0.19); PLATELET COUNT (AUTO) 340 K/uL (130-400); RED BLOOD CELL COUNT(AUTO) 3.12 MIL/uL (4.00-5.50); RED CELL DISTRIBUTION WIDTH 14.1 % (11.0-15.5); WHITE BLOOD COUNT (AUTO) 8.4 K/uL (4.8-10.8)
[2025-01-23 08:13] LABS: ASPARTATE AMINOTRANSFERASE 19.0 U/L (10-37); CREATININE 0.7 mg/dL (0.5-1.0); GLOMERULAR FILTR. RATE CALC 84.0 mL/min (>90); GLUCOSE,RANDOM 103.0 mg/dL (70-105); PHOSPHORUS 3.5 mg/dL (2.5-4.9); SODIUM SERUM 142.0 mmol/L (136-145); TOTAL PROTEIN, SERUM 5.9 g/dL (6.0-8.3); UREA NITROGEN, BLOOD 15.0 mg/dL (7-18)
--- NOTE | 2025-01-23 13:00 | HP ---
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 Macias, HLD, tonsillectomy, bilateral knee arthroplasty, who came to emergency department s/p fall. Patient stated that two was driving a golf cart back to her home and while trying to get to home she stepped into a hole and she fell forward and landed on her hands. Patient denies hitting head. Patient stated that she heard a pop and severe pain and her daughter who was standing close to her call 911. She was brought to [facility] for further evaluation. X-ray of hip/pelvis was performed and showed markedly displaced fracture prosthesis of the left proximal femur extending from intertroch cleared region to proximal diaphysis. Pelvis x-ray showed mildly displaced periprosthetic fracture of the left proximal femur extending from the left intertrochanteric region to the proximal diaphysis. Similar findings on the recent radiology of the left hip. Knee x-ray showed no acute findings in the settings of the left total knee arthroplasty. Left knee joint effusion and infrapatellar bursitis. Chest x-ray showed mild cardiomegaly. Dr. Macias was consulted to evaluate the patient. Most recent vital signs temperature 98.8 pulse 66 respiration 18 blood pressure 120/45 patient is on room air satting 94%. WBC 8.4 Hemoglobin 9.6 hematocrit 30.4 Platelets 340 UA negative . [id number] potassium 5.1 CO2 32 BUN 15 cre atinine 0.7 GFR random glucose 103 magnesium 2.1 Calcium 8.9 hemoglobin A1c 5.0 albumin 2.9 bilirubin 0.5 AST 19 ALT 14 Patient will be admitted under hospitalist care for further evaluation/recommendation. A.m. labs. REVIEW OF SYSTEMS CONSTITUTIONAL: Denies fevers, chills, or night sweats. No unintentional weight loss reported. NEUROLOGICAL: Denies headache, amaurosis fugax, motor weakness, sensory deficit, vertigo/spinning sensation, gait abnormalities, or tremors. ENT: No hearing loss, otalgia, otorrhea, rhinitis, rhinorrhea, hoarseness, or sore throat. CARDIOVASCULAR: Denies any exertional angina, dyspnea on exertion, orthopnea, paroxysmal nocturnal dyspnea, palpitations, life-threatening arrhythmias, claudication. PULMONARY: Denies any shortness of breath, cough, phlegm/sputum, hemoptysis, pleuritic chest pain. SLEEP: Denies morning headaches, daytime somnolence or napping. Denies difficulty falling asleep, staying asleep, waking from sleep. Denies knowledge of snoring. GASTROINTESTINAL: Denies any type of dysphagia to either liquids or solids. Denies nausea, vomiting, pyrosis, early satiety, abdominal pain, diarrhea, constipation, or changes in stool consistency or caliber. Denies coffee-ground emesis, hematemesis, hematochezia, or melanotic stools. GENITOURINARY: Denies frequency, urgency, nocturia, hematuria or incontinence (Storage/Irritative symptoms.) Low urinary stream, straining to void, urinary intermittency or hesitancy, splitting of the voiding stream, terminal dribbling. ENDOCRINOLOGIC: Denies polyuria, polydipsia, polyphagia or heat/cold intolerances. HEMATOLOGIC: Denies thrombophilia/previous clots, or coagulopathy/bleeding disorders. ONCOLOGIC: Denies personal history of malignancy. DERMATOLOGIC: Denies rashes or pruritus. PSYCHIATRIC: Denies any suicidal or homicidal ideation. Denies hallucinations. PAST MEDICAL HISTORY: [ Left hip arthro arthritis, HLD, ] PAST SURGICAL HISTORY: [ Bilateral knee arthroplasty, left total hip arthroplasty ] PAST SOCIAL HISTORY: [ Patient denies smoking. Patient denies any drug illicit. Patient denies any alcohol illicit.] FAMILY HISTORY: [ Patient lives at home with her who has advanced Alzheimer and is on hospice. ] Coded Allergies: Sulfa (Sulfonamide Antibiotics) (Unverified Allergy, Unknown, 01/05/25) PHYSICAL EXAM GENERAL APPEARANCE: The patient is awake, alert, and oriented, in no acute cardiopulmonary distress. NEUROLOGICAL: Cranial nerves II-XII grossly intact. Motor is 5/5 in bilateral upper and lower extremities proximal to distal. No sensory deficits. HEENT: Face is symmetric. Pupils are equal and reactive. Extraocular movements are intact. NECK: Supple. No JVD. No thyromegaly. No submental, submandibular, pre- /postauricular, occipital or supraclavicular lymphadenopathy. CHEST: Normal chest expansion. No Telemetry. LUNGS: Absence of any rales, rhonchi or any wheezing. CARDIOVASCULAR: Regular. S1 and S2 normal. No appreciable rubs, murmurs or gallops. ABDOMEN: Soft, nontender, and nondistended. There is no rebound, voluntary guarding, or rigidity. : Deferred. No Monroy. EXTREMITIES: Non-edematous and not cyanotic. No clubbing. Good capillary ref ill. Complains of left hip pain s/p fall SKIN: No skin breakdown. Vital Sign (Last 24 Hours) 01/23/25 11:33 Temp 98.8 Pulse 66 Resp 13 B/P (MAP) 120/45 Pulse Ox 94 O2 Delivery Room Air* O2 Flow Rate 0 FiO2 21 LABS: Laboratory: Test 01/23/25 11:17 01/23/25 07:13 01/22/25 21:04 01/22/25 19:25 Range/Units Whole Blood Glucose 95 70-110 MG/DL White Blood Count 8.4 4.8-10.8 K/uL Red Blood Count 3.12 L 4.00-5.50 MIL/uL Hemoglobin 9.6 L 12.0-16.0 g/dL Hematocrit 30.4 L 36-48 % Mean Corpuscular Volume 97.4 79-99 fL Mean Corpuscular Hemoglobin 30.8 27.0-33.0 pg Mean Corpuscular Hemoglobin Concent 31.6 L 32.0-36.0 g/dL Red Cell Distribution Width 14.1 11.0-15.5 % Platelet Count 340 130-400 K/uL Mean Platelet Volume 10.5 7.5-10.5 fL Immature Granulocyte % (Auto) 0.6 0-1 % Neutrophils (%) (Auto) 78.5 H 40.0-77.0 % Lymphocytes (%) (Auto) 11.0 L 21.0-51.0 % Monocytes (%) (Auto) 8.5 3.0-13.0 % Eosinophils (%) (Auto) 1.0 0.0-8.0 % Basophils (%) (Auto) 0.4 0.0-5.0 % Neutrophils # (Auto) 6.6 1.8-7.7 K/uL Lymphocytes # (Auto) 0.9 L 1.0-4.8 K/uL Monocytes # (Auto) 0.7 0.1-1.0 K/uL Eosinophils # (Auto) 0.08 0.00-0.70 K/uL Basophils # (Auto) 0.03 0.00-0.20 K/uL Absolute Immature Granulocyte (auto 0.05 0-1 K/uL Nucleated Red Blood Cells 0.0 0.0-0.19 % Sodium Level 142 136-145 mmol/L Potassium Level 5.1 3.5-5.1 mmol/L Chloride Level 107 101-111 mmol/L Carbon Dioxide Level 32 21-32 mmol/L Blood Urea Nitrogen 15 7-18 mg/dL Creatinine 0.7 0.5-1.0 mg/dL Glomerular Filtration Rate Calc 84 >90 mL/min Random Glucose 103 70-105 mg/dL Hemoglobin A1c 5.0 4.0-6.0 % Estimated Average Glucose (eAG) 97 70-126 mg/dL Total Calcium 8.9 8.5-10.1 mg/dL Phosphorus Level 3.5 2.5-4.9 mg/dL Magnesium Level 2.10 1.80-2.40 mg/dL Total Bilirubin 0.5 0.2-1.0 mg/dL Aspartate Amino Transf (AST/SGOT) 19 10-37 U/L Alanine Aminotransferase (ALT/SGPT) 14 12-78 U/L Alkaline Phosphatase 89 50-136 U/L Total Protein 5.9 L 6.0-8.3 g/dL Albumin 2.9 L 3.5-5.0 g/dL Thyroid Stimulating Hormone (TSH) 2.81 0.36-3.74 uIU/mL Urine Color YELLOW YELLOW Urine Appearance CLEAR CLEAR Urine pH 6.0 5.0-8.0 Urine Specific [place] 1.029 1.001-1.031 Urine Protein NEGATIVE NEGATIVE mg/dL Urine Glucose (UA) NEGATIVE NEGATIVE mg/dL Urine Ketones NEGATIVE NEGATIVE mg/dL Urine Occult Blood NEGATIVE NEGATIVE Urine Nitrate NEGATIVE NEGATIVE Urine Bilirubin NEGATIVE NEGATIVE mg/dL Urine Urobilinogen 0.2 0.2-1.0 mg/dL Urine Leukocyte Esterase NEGATIVE NEGATIVE Shadia/uL Urine RBC 2-5 H 0-1 /HPF Urine WBC 0-1 0-1 /HPF Urine Squamous Epithelial Cells RARE 0-2 /HPF Urine Bacteria RARE None Seen /HPF Urine Hyaline Casts 2-5 H 0-1 /LPF /LPF Prothrombin Time 10.7 9.6-11.6 SEC Prothromb Time International Ratio 1.01 0.85-1.15 Activated Partial Thromboplast Time 26.2 L 26.3-35.5 SEC Current Medications Medications (Trade) Dose Ordered Sig/Vandana Route PRN Reason Start Time Stop Time Status Last Admin Dose Admin Acetaminophen (TYLenol 325MG TAB) 650 mg Q6H PRN PO FEVER/MILD PAIN LEVEL 1-3 01/22/25 21:00 02/21/25 20:59 Acetaminophen (TYLenol 650MG SUPPOSITORY) 650 mg Q6H PRN RC FEVER / MILD PAIN 1-3 IF NPO 01/22/25 21:00 02/21/25 20:59 Acetaminophen/ Hydrocodone Bitart (NORco 5/325MG) FOR MODERATE PAIN SC... Q6H PRN PO PAIN 4-10 01/22/25 21:00 01/27/25 20:59 Docusate Sodium (COLace 100MG CAP) 100 mg BID PRN PO c 01/22/25 21:00 02/21/25 20:59 Famotidine (Pepcid 20mg Vial) 20 mg BID IV 01/22/25 21:00 02/21/25 20:59 01/23/25 08:34 20 MG Hydromorphone HCl (DiLAUDid 0.5MG INJ) 0.5 mg Q4H PRN IVP PAIN LEVEL 7 TO 10 01/22/25 21:30 01/27/25 21:29 01/23/25 05:40 0.5 MG Insulin Human Regular (humuLIN R 100 UNIT/ML 3ML) INSULIN SLIDING SCAL... ACHS SQ 01/22/25 21:00 02/21/25 20:59 Ketorolac Tromethamine (toRADol) 15 mg Q6H PRN IV MODERATE PAIN (4-6) 01/22/25 21:00 01/27/25 20:59 01/23/25 08:34 15 MG Labetalol HCl (TRANdate 20MG SYG) 10 mg Q2H PRN IV SBP GREATER THAN 160 01/22/25 21:00 02/21/25 20:59 01/22/25 22:37 10 MG Lactated Ringer's 1,000 ml @ 75 mls/hr [id number] IV 01/22/25 21:00 02/21/25 20:59 01/23/25 09:50 75 MLS/HR Lactulose (Constulose 20gm/ 30ml Udcup) 20 gm Q6H PRN PO CONSTIPATION 01/22/25 21:00 02/21/25 20:59 Morphine Sulfate (morPHINE 2MG SYG) 2 mg ONCE IVP 01/22/25 20:00 01/22/25 20:56 DC 01/22/25 20:05 2 MG Morphine Sulfate (morPHINE 4MG SYG) 4 mg ONCE IVP 01/22/25 20:30 01/22/25 20:56 DC 01/22/25 20:31 4 MG Ondansetron HCl (zoFRAN 4MG INJ) 4 mg ONCE IVP 01/22/25 20:00 01/22/25 20:56 DC 01/22/25 20:05 4 MG Ondansetron HCl (zoFRAN 4MG INJ) 4 mg Q6H PRN IVP NAUSEA/VOMITING 01/22/25 21:00 02/21/25 20:59 Simvastatin (zoCOR) 20 mg HS PO 01/22/25 21:00 01/23/25 07:08 DC 01/22/25 21:14 20 MG Simvastatin (zoCOR) 20 mg HS PO 01/23/25 21:00 02/22/25 20:59 Temazepam (restORIL 15 MG CAP) 15 mg HS PRN PO INSOMNIA/SLEEP 01/22/25 21:00 02/21/25 20:59 DIAGNOSTICS / RADIOLOGY: [ ] ASSESSMENT: [ Displaced periprosthetic fracture of left proximal femur per hip/pelvis x-ray POA Infrapatellar bursitis per left knee x-ray POA s/p fall POA Uncontrolled hypertension POA Multifactorial anemia POA Acute dehydration POA ] PLAN: [Admit to medical surgical floor LR at 75 mL/hour Home medication reconciled by PHONE TECHNICIAN 01/23/2025 Urinalysis negative Monroy catheter inserted X-ray of hip/pelvis was performed and showed markedly displaced fracture prosthesis of the left proximal femur extending from intertroch cleared region to proximal diaphysis. Pelvis x-ray showed mildly displaced periprosthetic fracture of the left proximal femur extending from the left intertrochanteric region to the proximal diaphysis. Similar findings on the recent radiology of the left hip. Knee x-ray showed no acute findings in the settings of the left total knee arthroplasty. Left knee joint effusion and infrapatellar bursitis. Chest x-ray showed mild cardiomegaly. Dr. Macias was consulted to evaluate the patient. Left femur x-ray pending A.m. labs PT consulted Case management consulted for disposition] ADVANCED CARE PLANNING 1. Which of the following were discussed? Hospice Care - Yes / No Therapeutic options - Yes / No Advance Directives - Yes / No Other discussions - 2. Discussed with who? Patient 3. Voluntary nature of this service was explained to the patient? Yes / No 4. Amount of time spent - __ more than 35 minute 5. Reviewed by Physician? (if this service was performed by NPP) Yes / No ATTESTATION BY PHYSICIAN I have seen and examined the patient. I reviewed the documentation, medical decision making, and treatment plan as noted by the mid-level provider above. I agree with the findings and plan of care. ELE WALTER MD, KATARZYNA B METAL SMELTER Jan 23, 2025 13:00
--- NOTE | 2025-01-23 14:44 | NUR ---
DCP:HOME Pt currently lives at home with her sps. Pt states that her is currently on hospice. Pt does use a cane and walker at home. Pt has [facility] go to her home 3x a week for physical therapy. Pt does complete ADLs independently. PCP is Dr. Ermias Mcdonnell and uses [facility] for any RX needs. At [place] pt will want to go home and family can assist with transportation. Addendum: 01/23/25 at 1449 by GLADYS ANDERSON SS Amended: Links added.
[2025-01-23 16:33] VITALS: O2SAT 96
[2025-01-23 16:35] VITALS: BP 139/62; PULSE 74; RESP 16; TEMP 98.6
--- NOTE | 2025-01-23 16:51 | NUR ---
Patient transferred to room 412 in stretcher. All personal items and documentation taken with patient, bedside report given to Nurse Lobato.
[2025-01-23] MEDS ORDERED: LIDOCAINE PF 100MG/5ML (2%) SYRINGE 5ML ONE (20:21)
[2025-01-23] MEDS ORDERED: MIDAZOLAM HCL 1 MG/ML 2ML VIAL ONE (20:22)
[2025-01-23] MEDS ORDERED: GLYCOPYRROLATE 0.2 MG/ML 5 ML VIAL ONE (21:03)
[2025-01-23] MEDS ORDERED: TRANEXAMIC ACID 1000MG/10ML ONE (21:06)
[2025-01-23] MEDS ORDERED: 0.9%NACL 10ML VIAL ONE (22:37)
[2025-01-24] VITALS (26 sets, daily range): BP systolic 108–170; BP diastolic 45–97; PULSE 67–87; RESP 14–19; TEMP 97.5–98.9; O2SAT 94–97
[2025-01-24] MEDS ORDERED: 0.9%NACL 10ML VIAL ONE (00:16)
[2025-01-24] MEDS ORDERED: CALCIUM CARB 500MG PO PRN (01:00)
[2025-01-24] MEDS ORDERED: PoTASSium chloRIDE 20MEQ ER 20 MEQ ERTAB PO PRN (01:00)
[2025-01-24] MEDS ORDERED: PoTASSium chl 10% ELIXIR 20MEQ 20 MEQ/15 ML UDCUP PO PRN (01:00)
[2025-01-24] MEDS: SUGAMMADEX SODIUM 200 MG/2 ML VIAL IV ONE (02:22)
[2025-01-24] MEDS: 0.9%NACL 1000ML 1,000 ML IV SCH (02:34)
[2025-01-24 04:07] LABS: IMMATURE GRANULOCYTE ABSOLUTE 0.07 K/uL (0-1); NUCLEATED RED BLOOD CELLS 0.0 % (0.0-0.19); PLATELET COUNT (AUTO) 275 K/uL (130-400); RED BLOOD CELL COUNT(AUTO) 2.87 MIL/uL (4.00-5.50); RED CELL DISTRIBUTION WIDTH 13.5 % (11.0-15.5); WHITE BLOOD COUNT (AUTO) 11.8 K/uL (4.8-10.8)
[2025-01-24 04:21] LABS: ASPARTATE AMINOTRANSFERASE 23.0 U/L (10-37); CREATININE 0.5 mg/dL (0.5-1.0); GLOMERULAR FILTR. RATE CALC 91.0 mL/min (>90); GLUCOSE,RANDOM 136.0 mg/dL (70-105); SODIUM SERUM 134.0 mmol/L (136-145); TOTAL PROTEIN, SERUM 5.2 g/dL (6.0-8.3); UREA NITROGEN, BLOOD 16.0 mg/dL (7-18)
[2025-01-24 04:36] LABS: WBC MORPHOLOGY CONSISTENT W/DIFF
[2025-01-24] MEDS: FAMOTIDINE 20MG TAB PO SCH (09:41)
--- NOTE | 2025-01-24 10:43 | PN ---
[facility] PROGRESS NOTE Date of Service: Jan 24, 2025 Time of Service: 10:[address] Walter SUBJECTIVE: [ 01/23 Patient is 84 years old female with a past medical history of left hip osteoarthritis s/p left total hip arthroplasty 01/06/[address] Marroquin, HLD, tonsillectomy, bilateral knee arthroplasty, who came to emergency department s/p fall. Patient stated that two was driving a golf cart back to her home and while trying to get to home she stepped into a hole and she fell forward and landed on her hands. Patient denies hitting head. Patient stated that she heard a pop and severe pain and her daughter who was standing close to her call 911. She was brought to [facility] for further evaluation. X-ray of hip/pelvis was performed and showed markedly displaced fracture prosthesis of the left proximal femur extending from intertroch cleared region to proximal diaphysis. Pelvis x-ray showed mildly displaced periprosthetic fracture of the left proximal femur extending from the left intertrochanteric region to the proximal diaphysis. Similar findings on the recent radiology of the left hip. Knee x-ray showed no acute findings in the settings of the left total knee arthroplasty. Left knee joint effusion and infrapatellar bursitis. Chest x-ray showed mild cardiomegaly. Dr. Marroquin was consulted to evaluate the patient. Most recent vital signs temperature 98.8 pulse 66 respiration 18 blood pressure 120/45 patient is on room air satting 94%. WBC 8.4 Hemoglobin 9.6 hematocrit 30.4 Platelets 340 UA negative . [id number] potassium 5.1 CO2 32 BUN 15 creatinine 0.7 GFR random glucose 103 magnesium 2.1 Calcium 8.9 hemoglobin A1c 5.0 albumin 2.9 bilirubin 0.5 AST 19 ALT 14 Patient will be admitted under hospitalist care for further evaluation/recomme ndation. A.m. labs. 01/24 patient was seen by nurse practitioner and physician during rounding in room 412. Patient is s/p ORIF of L hip with dr Marroquin. Pt on cler liquid diet and advance as tolerated. Left XR femur pending. Case management consulted for possible rehab. PT consulted for evaluation. WBCs 11.8. We will continue to monitor patient in the meantime. A.m. labs.] REVIEW OF SYSTEMS CONSTITUTIONAL: Denies fevers, chills, or night sweats. No unintentional weight loss reported. NEUROLOGICAL: Denies headache, amaurosis fugax, motor weakness, sensory def icit, vertigo/spinning sensation, gait abnormalities, or tremors. ENT: No hearing loss, otalgia, otorrhea, rhinitis, rhinorrhea, hoarseness, or sore throat. CARDIOVASCULAR: Denies any exertional angina, dyspnea on exertion, orthopnea, paroxysmal nocturnal dyspnea, palpitations, life-threatening arrhythmias, claudication. PULMONARY: Denies any shortness of breath, cough, phlegm/sputum, hemoptysis, pleuritic chest pain. SLEEP: Denies morning headaches, daytime somnolence or napping. Denies difficulty falling asleep, staying asleep, waking from sleep. Denies knowledge of snoring. GASTROINTESTINAL: Denies any type of dysphagia to either liquids or solids. Denies nausea, vomiting, pyrosis, early satiety, abdominal pain, diarrhea, constipation, or changes in stool consistency or caliber. Denies coffee-ground emesis, hematemesis, hematochezia, or melanotic stools. GENITOURINARY: Denies frequency, urgency, nocturia, hematuria or incontinence (Storage/Irritative symptoms.) Low urinary stream, straining to void, urinary intermittency or hesitancy, splitting of the voiding stream, terminal dribbling. ENDOCRINOLOGIC: Denies polyuria, polydipsia, polyphagia or heat/cold intolerances. HEMATOLOGIC: Denies thrombophilia/previous clots, or coagulopathy/bleeding disorders. ONCOLOGIC: Denies personal history of malignancy. DERMATOLOGIC: Denies rashes or pruritus. S/p left or ORIF hip PSYCHIATRIC: Denies any suicidal or homicidal ideation. Denies hallucinations. PHYSICAL EXAM GENERAL APPEARANCE: The patient is awake, alert, and oriented, in no acute cardiopulmonary distress. NEUROLOGICAL: Cranial nerves II-XII grossly intact. Motor is 5/5 in bilateral upper and lower extremities proximal to distal. No sensory deficits. HEENT: Face is symmetric. Pupils are equal and reactive. Extraocular movements are intact. NECK: Supple. No JVD. No thyromegaly. No submental, submandibular, pre- /postauricular, occipital or supraclavicular lymphadenopathy. CHEST: Normal chest expansion. No Telemetry. LUNGS: Absence of any rales, rhonchi or any wheezing. CARDIOVASCULAR: Regular. S1 and S2 normal. No appreciable rubs, murmurs or gallops. ABDOMEN: Soft, nontender, and nondistended. There is no rebound, voluntary guarding, or rigidity. : Deferred. No Monroy. EXTREMITIES: Non-edematous and not cyanotic. No clubbing. Good capillary refill. Complains of left hip pain s/p fall SKIN: No skin breakdown. Vital Signs (last 8hr) Date Time Temp Pulse Resp B/P (MAP) Pulse Ox O2 Delivery O2 Flow Rate FiO2 01/24/25 08:15 80 18 122/53 96 Nasal Cannula 2.0 01/24/25 07:15 99.0 82 18 117/45 97 Nasal Cannula 2.0 01/24/25 06:15 97.9 74 18 123/72 97 Nasal Cannula 2.0 24 01/24/25 05:15 98.1 71 18 121/54 97 Nasal Cannula 2.0 01/24/25 04:15 98.1 68 18 122/54 97 Nasal Cannula 2.0 01/24/25 04:15 98.1 68 18 122/54 97 Nasal Cannula 2.0 24 01/24/25 03:45 98.1 67 18 129/45 96 Nasal Cannula 2.0 01/24/25 03:15 97.9 69 18 126/46 96 Nasal Cannula 2.0 24 01/24/25 03:00 98.1 69 18 119/50 96 Nasal Cannula 2.0 01/24/25 02:45 97.9 68 18 113/46 96 Nasal Cannula 2.0 01/24/25 02:45 Nasal Cannula* 2 28 LABS: Laboratory: Test 01/24/25 05:04 01/24/25 04:01 01/23/25 07:13 01/22/25 21:04 Range/Units Whole Blood Glucose 133 H 70-110 MG/DL White Blood Count 11.8 #H 4.8-10.8 K/uL Red Blood Count 2.87 L 4.00-5.50 MIL/uL Hemoglobin 9.1 L 12.0-16.0 g/dL Hematocrit 27.7 L 36-48 % Mean Corpuscular Volume 96.5 79-99 fL Mean Corpuscular Hemoglobin 31.7 27.0-33.0 pg Mean Corpuscular Hemoglobin Concent 32.9 32.0-36.0 g/dL Red Cell Distribution Width 13.5 11.0-15.5 % Platelet Count 275 130-400 K/uL Mean Platelet Volume 9.8 7.5-10.5 fL Immature Granulocyte % (Auto) 0.6 0-1 % Neutrophils (%) (Auto) 93.2 H 40.0-77.0 % Lymphocytes (%) (Auto) 3.7 L 21.0-51.0 % Monocytes (%) (Auto) 2.4 L 3.0-13.0 % Eosinophils (%) (Auto) 0.0 0.0-8.0 % Basophils (%) (Auto) 0.1 0.0-5.0 % Neutrophils # (Auto) 11.0 H 1.8-7.7 K/uL Lymphocytes # (Auto) 0.4 L 1.0-4.8 K/uL Monocytes # (Auto) 0.3 0.1-1.0 K/uL Eosinophils # (Auto) 0.00 0.00-0.70 K/uL Basophils # (Auto) 0.01 0.00-0.20 K/uL Absolute Immature Granulocyte (auto 0.07 0-1 K/uL Nucleated Red Blood Cells 0.0 0.0-0.19 % White Cell Morphology Comment CONSISTENT W/DIFF Sodium Level 134 L 136-145 mmol/L Potassium Level 4.5 3.5-5.1 mmol/L Chloride Level 102 101-111 mmol/L Carbon Dioxide Level 29 21-32 mmol/L Blood Urea Nitrogen 16 7-18 mg/dL Creatinine 0.5 0.5-1.0 mg/dL Glomerular Filtration Rate Calc 91 >90 mL/min Random Glucose 136 H 70-105 mg/dL Total Calcium 8.1 L 8.5-10.1 mg/dL Magnesium Level 1.90 1.80-2.40 mg/dL Total Bilirubin 0.5 0.2-1.0 mg/dL Aspartate Amino Transf (AST/SGOT) 23 10-37 U/L Alanine Aminotransferase (ALT/SGPT) 16 12-78 U/L Alkaline Phosphatase 80 50-136 U/L Total Protein 5.2 L 6.0-8.3 g/dL Albumin 2.4 L 3.5-5.0 g/dL Hemoglobin A1c 5.0 4.0-6.0 % Estimated Average Glucose (eAG) 97 70-126 mg/dL Phosphorus Level 3.5 2.5-4.9 mg/dL Thyroid Stimulating Hormone (TSH) 2.81 0.36-3.74 uIU/mL Urine Color YELLOW YELLOW Urine Appearance CLEAR CLEAR Urine pH 6.0 5.0-8.0 Urine Specific Negley 1.029 1.001-1.031 Urine Protein NEGATIVE NEGATIVE mg/dL Urine Glucose (UA) NEGATIVE NEGATIVE mg/dL Urine Ketones NEGATIVE NEGATIVE mg/dL Urine Occult Blood NEGATIVE NEGATIVE Urine Nitrate NEGATIVE NEGATIVE Urine Bilirubin NEGATIVE NEGATIVE mg/dL Urine Urobilinogen 0.2 0.2-1.0 mg/dL Urine Leukocyte Esterase NEGATIVE NEGATIVE Shadia/uL Urine RBC 2-5 H 0-1 /HPF Urine WBC 0-1 0-1 /HPF Urine Squamous Epithelial Cells RARE 0-2 /HPF Urine Bacteria RARE None Seen /HPF Urine Hyaline Casts 2-5 H 0-1 /LPF /LPF Test 01/22/25 19:25 Range/Units Prothrombin Time 10.7 9.6-11.6 SEC Prothromb Time International Ratio 1.01 0.85-1.15 Activated Partial Thromboplast Time 26.2 L 26.3-35.5 SEC Current Medications Medications (Trade) Dose Ordered Sig/Vandana Route PRN Reason Start Time Stop Time Status Last Admin Dose Admin Acetaminophen (TYLenol 325MG TAB) 650 mg Q6H PRN PO FEVER/MILD PAIN LEVEL 1-3 01/22/25 21:00 02/21/25 20:59 Acetaminophen (TYLenol 650MG SUPPOSITORY) 650 mg Q6H PRN RC FEVER / MILD PAIN 1-3 IF NPO 01/22/25 21:00 02/21/25 20:59 Acetaminophen/ Hydrocodone Bitart (NORco 5/325MG) FOR MODERATE PAIN SC... Q6H PRN PO PAIN 4-10 01/22/25 21:00 01/27/25 20:59 Bisacodyl (DulcoLAX) 10 mg DAILY PRN RC CONSTIPATION 01/27/25 01:00 02/26/25 00:59 Calcium Carbonate (Oyster Shell Ca 500mg Tab) 500 mg Q12H PRN PO GIVE IF SERUM CA LESS THAN 8 01/24/25 01:00 02/23/25 00:59 Cefazolin Sodium (Ancef) 2 gm Q8H IVP 01/24/25 06:00 01/24/25 14:01 01/24/25 05:13 2 GM Diphenhydramine HCl (BENAdryl INJ) 25 mg Q6H PRN IVP ITCHING 01/24/25 01:00 02/23/25 00:59 Docusate Sodium (COLace 100MG CAP) 100 mg BID PRN PO c 01/22/25 21:00 02/21/25 20:59 Famotidine (Pepcid 20mg Vial) 20 mg BID IV 01/22/25 21:00 01/24/25 00:55 DC 01/23/25 08:34 20 MG Famotidine (Pepcid 20mg Tab) 20 mg BID PO 01/24/25 09:00 02/23/25 08:59 01/24/25 09:41 20 MG Ferrous Fumarate (Hemocyte) 324 mg DAILY PRN PO IF HEMOGLOBIN LESS THAN 9 01/24/25 01:00 02/23/25 00:59 Heparin Sodium (Porcine) (HEParin 5,000 UNIT VIAL) 5,000 unit Q12H SQ 01/24/25 09:00 02/23/25 08:59 01/24/25 09:47 5,000 UNIT Hydromorphone HCl (DiLAUDid 0.5MG INJ) 0.5 mg Q4H PRN IVP PAIN LEVEL 7 TO 10 01/22/25 21:30 01/27/25 21:29 01/23/25 05:40 0.5 MG Insulin Human Regular (humuLIN R 100 UNIT/ML 3ML) INSULIN SLIDING SCAL... ACHS SQ 01/22/25 21:00 01/24/25 05:27 DC Ketorolac Tromethamine (toRADol) 15 mg Q6H PRN IV MODERATE PAIN (4-6) 01/22/25 21:00 01/27/25 20:59 01/23/25 14:37 15 MG Ketorolac Tromethamine (toRADol) 15 mg Q6H PRN IV BREAKTHROUGH PAIN 01/24/25 01:00 01/24/25 00:55 DC Labetalol HCl (TRANdate 20MG SYG) 10 mg Q2H PRN IV SBP GREATER THAN 160 01/22/25 21:00 02/21/25 20:59 01/22/25 22:37 10 MG Lactated Ringer's 1,000 ml @ 75 mls/hr [id number] IV 01/22/25 21:00 02/21/25 20:59 01/23/25 09:50 75 MLS/HR Lactulose (Constulose 20gm/ 30ml Udcup) 20 gm Q6H PRN PO CONSTIPATION 01/22/25 21:00 02/21/25 20:59 Morphine Sulfate (morPHINE 2MG SYG) 2 mg ONCE IVP 01/22/25 20:00 01/22/25 20:56 DC 01/22/25 20:05 2 MG Morphine Sulfate (morPHINE 4MG SYG) 4 mg ONCE IVP 01/22/25 20:30 01/22/25 20:56 DC 01/22/25 20:31 4 MG Ondansetron HCl (zoFRAN 4MG INJ) 4 mg ONCE IVP 01/22/25 20:00 01/22/25 20:56 DC 01/22/25 20:05 4 MG Ondansetron HCl (zoFRAN 4MG INJ) 4 mg Q6H PRN IVP NAUSEA/VOMITING 01/22/25 21:00 02/21/25 20:59 Ondansetron HCl (zoFRAN 4MG INJ) 4 mg Q6H PRN IVP NAUSEA/VOMITING 01/24/25 01:00 01/24/25 00:55 DC Polyethylene Glycol (MIRalax 3350 17 GM POWD.PACK) 17 gm DAILY PO 01/24/25 09:00 02/23/25 08:59 01/24/25 09:42 17 GM Potassium Chloride 100 ml @ 100 mls/hr AD PRN IV POTASSIUM PROTOCOL 01/24/25 01:00 02/23/25 00:59 Potassium Chloride (K-Dur/Klor-Con 20meq) 20 meq AD PRN PO POTASSIUM PROTOCOL 01/24/25 01:00 02/23/25 00:59 Potassium Chloride (KCl 10% Elixir 20meq/15ml) 20 meq AD PRN PO POTASSIUM PROTOCOL 01/24/25 01:00 02/23/25 00:59 Simvastatin (zoCOR) 20 mg HS PO 01/22/25 21:00 01/23/25 07:08 DC 01/22/25 21:14 20 MG Simvastatin (zoCOR) 20 mg HS PO 01/23/25 21:00 02/22/25 20:59 Sodium Chloride 1,000 ml @ 100 mls/hr Q10H IV 01/24/25 01:00 01/25/25 00:59 01/24/25 02:34 100 MLS/HR Temazepam (restORIL 15 MG CAP) 15 mg HS PRN PO INSOMNIA/SLEEP 01/22/25 21:00 02/21/25 20:59 DIAGNOSTICS / RADIOLOGY: [ ] ASSESSMENT: [ Displaced periprosthetic fracture of left proximal femur per hip/pelvis x-ray POA s/p L hipr ORIF 01/24/[address] Marroquin Infrapatellar bursitis per left knee x-ray POA s/p fall POA Uncontrolled hypertension POA Multifactorial anemia POA Acute dehydration POA ] PLAN: [Admit to medical surgical floor LR at 75 mL/hour Home medication reconciled by MAPPING SPECIALIST 01/23/2025 Urinalysis negative Monroy catheter inserted X-ray of hip/pelvis was performed and showed markedly displaced fracture prosthesis of the left proximal femur extending from intertroch cleared region to proximal diaphysis. Pelvis x-ray showed mildly displaced periprosthetic fracture of the left proximal femur extending from the left intertrochanteric region to the proximal diaphysis. Similar findings on the recent radiology of the left hip. Knee x-ray showed no acute findings in the settings of the left total knee arthroplasty. Left knee joint effusion and infrapatellar bursitis. Chest x-ray showed mild cardiomegaly. Dr. Marroquin pending further recommendation s/p left hip ORIF Left femur x-ray pending A.m. labs PT consulted Case management consulted for disposition] ATTESTATION BY PHYSICIAN I have seen and examined the patient. I reviewed the documentation, medical decision making, and treatment plan as noted by the mid-level provider above. I agree with the findings and plan of care. ELE WALTER MD, KATARZYNA B ASW/ASUW T[employer]ICAL [employer] CONTRO[employer]ER Jan 24, 2025 10:43
--- NOTE | 2025-01-24 15:32 | OP ---
Operative Note: DATE OF PROCEDURE: 01/23/25 SURGEON: FAITH BETH MD BRAND LEAD: [Joanie Urias CFA] ANESTHESIA: [General anesthesia plus regional block] ANESTHESIOLOGIST/PARKING CASHIER: [Enrique Coffey CRNA. Shay Sage CRNA] PREOPERATIVE DIAGNOSIS: [Left proximal femur periprosthetic fracture] POSTOPERATIVE DIAGNOSIS: [Left proximal femur periprosthetic fracture with degloving injury and complete disruption of gluteus jessica/tensor fascia aubrey repair and short external rotators.] IMPLANTS: [The [employer]. 4.5 narrow nine hole DCP plate plus three cortical screws and five cerclage wires. 15 cc allograft bone] PROCEDURE: [Open reduction internal fixation of left proximal femur periprosthetic fracture with placement of bone allograft, evacuation of seroma and hematoma and primary closure over drains] ESTIMATED BLOOD LOSS: [200 mL, in addition to the 600 mL of the seroma aspirated and a large hematoma removed.] INDICATIONS: [The patient is an 84-year-old female with history of a recent total hip arthroplasty performed done by myself. The patient sustained in a fall when she was walking on uneven terrain and stepped in a hole with her walker sustaining above-mentioned injury. The patient is brought to the operating room for internal fixation, possible revision proximal femoral component. Procedure understood, risks, benefits and possible complications and agreed to sign the consent form] DESCRIPTION OF PROCEDURE: [After adequate general anesthesia was achieved the patient was placed in the right lateral decubitus with the use of the posts kept in that position. The left lower extremity was prepped and draped in the usual manner. The patient was noted to have a very significant prominent subcutaneous mass in the hip area where the all surgical incision was present and the area was red as well as well as fluctuant very suspicious for a seroma. Using the previous surgical scar we proceeded then to follow the same incision and a slight curvilinear fashion and then extended longitudinally along the femoral shaft. After going through the skin a small penetration into the subcutaneous tissue produced a your well conserved thank you large seroma that we were able to collect 600 mL. After this was drain we noted that the patie nt's repair of the gluteus jessica proximal portion of the tensor fascia aubrey was completely disrupted and a hematoma was found deep into the wound and this was removed manually noticing also that the short external rotators of the hip were also disrupted. After irrigation of the area was completed we proceeded then to expose the proximal femur by elevation of the vastus lateralis picking an incision along the posterior border attachment of the femur and then subperiosteally we elevated the muscle. With the use of the C-arm for fluoroscopy we located the distal end of the prosthesis and the exposure was made just distal to this area. After the vastus lateralis was elevated we were able to see portion of the fracture distally and with the use of a bone clamp attempted to reduce it but it was very difficult. Proximally we were able to palpate the fracture anteriorly and also was difficult to reduce multiple attempts by traction were not successful and for this reason we proceeded then to look into the hip joint where it was noted that the fracture which was displaced was locking against the rotated femoral component which was the reason for the difficulty for the reduction. An attempt to the rotate the component was difficult and for this reason I opted for remove it. The component was passed to the back table and placed on an antibiotic solution in a container. We then proceeded to address the fracture again and we noted that the fracture was now very easily reduced. Clamps were applied to hold it in position and then we proceeded to use a DCP plate from [employer], nine holes and we proceeded then to applied to the side of the femur and then put it in the back table and molded to follow the curvature of the inferior portion of the greater trochanter. Once the plate was adequately seated against the femur we proceeded then to secure it distally with two cortical screws using fluoroscopy for visualization. We then proceeded to a applied a cerclage cable just proximal to the distal end of the fracture which was now adequately reduced using the cable Passer around the femoral shaft. The gluteus jessica distal insertion was then preserved and we dissected posteriorly just proximal to this attachment and in this manner we were able to palpate the calcar as well as the lesser tuberosity. In this manner we proceeded to apply a 2nd cable in the calcar area, a 3rd one below the lesser trochanter and a fourth one just distal to the attachment of the gluteus jessica. The cables were passed and secured against the plate and then tightened them using the compression device with a crimp and then cut in the end of the cables. The reduction was noted to be excellent by x-rays. Then we proceeded to bring the femoral component to place and the proximal femur was exposed and then the femoral component was reinserted after being perfectly irrigated and cleaned and before finishing the final insertion bone graft was applied in the calcar area as well as in the greater trochanter area to allow for the component not to sink. We then proceeded to evaluated with the C-arm the position and a 3rd bicortical screw was then applied in the distal portion of the plate just below the tip of the component and after the screw was placed we proceeded to past another cable in this area. Then we noticed a small area of gapping in the insertion site of the component and more bone graft was applied until filling of the defect. The hip was then reduced with a any difficulty. Final x-rays taken by fluoroscopy revealed an adequate reduction of the fracture and adequate position of the component. After copious irrigation of the wound was done was again along the whole length of it we proceeded then to reapproximate the vastus lateralis muscle along the posterior edge of the insertion with 1 Vicryl as well as in the proximal attachment against the gluteus medius. Then we proceeded to applied through a separate stab incision one drain size 10 along the whole length of the incision in the deep area and then proceeded to close distally the tensor fascia aubrey with number Vicryl cross stitches proximally we were not able to reapproximate the short external rotators which were shredded but we were able to reconstruct the gluteus jessica tensor fascia aubrey layer. Once this was achieved irrigation of the wound was again performed and a 2nd drain was then applied anteriorly to the previous one and placed in the subcutaneous tissue. The latter was then closed with a 2-0 Vicryl inverted stitches subcutaneously followed by closure of the skin with a approximation with angie. The incision was cleaned and a soft dressing was applied including Xeroform arms 4x4s and tape and the drains connected to suction grenades. The drapes were then removed and the patient was placed in the supine position and then transferred to her bed to be taken to recovery room for follow-up by anesthesia. There were no complications during the procedure] FAITH BETH MD Jan 24, 2025 15:32
--- NOTE | 2025-01-24 15:35 | PN ---
Postop day 1.. Status post left hip periprosthetic fracture open reduction internal fixation, evacuation of seroma/hematoma. Vital signs remained stable, afebrile. Laboratory has been reviewed. Patient awake, alert and oriented in no distress. Normal respiratory effort. Drain output of 150 mL serosanguineous. Dressing intact. A stress exam normal. Assessment: As above Plan: The patient has been informed about the findings of the surgery and procedure performed. We are going to start physical therapy and rehabilitation with partial weight-bearing of the left lower extremity and discharge planning. The patient would like to go home. We will continue monitoring the drain output and discontinue the drains as needed. Continue pain management Vitals/Labs Vital Signs Date Time Temp Pulse Resp B/P (MAP) Pulse Ox O2 Delivery O2 Flow Rate FiO2 01/24/25 11:43 98.6 78 18 127/63 97 Nasal Cannula 2.0 24 Laboratory Tests 01/24/25 04:01 Medications Current Medications Morphine Sulfate 2 mg ONCE IVP Last administered on 01/22/25at 20:05; Start 01/22/25 at 20:00; Stop 01/22/25 at 20:56; Status DC Ondansetron HCl 4 mg ONCE IVP Last administered on 01/22/25at 20:05; Start 01/22/25 at 20:00; Stop 01/22/25 at 20:56; Status DC Morphine Sulfate 4 mg ONCE IVP Last administered on 01/22/25at 20:31; Start 01/22/25 at 20:30; Stop 01/22/25 at 20:56; Status DC Lactated Ringer's 1,000 ml @ 75 mls/hr [id number] IV Last administered on 01/23/25at 09:50; Start 01/22/25 at 21:00; Stop 02/21/25 at 20:59 Acetaminophen 650 mg Q6H PRN PO; Start 01/22/25 at 21:00; Stop 02/21/25 at 20:59 Acetaminophen 650 mg Q6H PRN RC; Start 01/22/25 at 21:00; Stop 02/21/25 at 20:59 Acetaminophen/ Hydrocodone Bitart FOR MODERATE PAIN SC... Q6H PRN PO; Start 01/22/25 at 21:00; Stop 01/27/25 at 20:59 Lactulose 20 gm Q6H PRN PO; Start 01/22/25 at 21:00; Stop 02/21/25 at 20:59 Docusate Sodium 100 mg BID PRN PO; Start 01/22/25 at 21:00; Stop 02/21/25 at 20:59 Temazepam 15 mg HS PRN PO; Start 01/22/25 at 21:00; Stop 02/21/25 at 20:59 Ondansetron HCl 4 mg Q6H PRN IVP; Start 01/22/25 at 21:00; Stop 02/21/25 at 20:59 Labetalol HCl 10 mg Q2H PRN IV Last administered on 01/22/25at 22:37; Start 01/22/25 at 21:00; Stop 02/21/25 at 20:59 Hydromorphone HCl 0.5 mg Q4H PRN IVP Last administered on 01/24/25at 14:47; Start 01/22/25 at 21:30; Stop 01/27/25 at 21:29 Insulin Human Regular INSULIN SLIDING SCAL... ACHS SQ; Start 01/22/25 at 21:00; Stop 01/24/25 at 05:27; Status DC Ketorolac Tromethamine 15 mg Q6H PRN IV Last administered on 01/23/25at 14:37; Start 01/22/25 at 21:00; Stop 01/27/25 at 20:59 Famotidine 20 mg BID IV Last administered on 01/23/25at 08:34; Start 01/22/25 at 21:00; Stop 01/24/25 at 00:55; Status DC Simvastatin 20 mg HS PO Last administered on 01/22/25at 21:14; Start 01/22/25 at 21:00; Stop 01/23/25 at 07:08; Status DC Simvastatin 20 mg HS PO; Start 01/23/25 at 21:00; Stop 02/22/25 at 20:59 Cefazolin Sodium 2 gm STK-MED ONCE .ROUTE; Start 01/23/25 at 19:37; Stop 01/23/25 at 19:38; Status DC Lidocaine HCl 100 mg STK-MED ONCE .ROUTE; Start 01/23/25 at 20:21; Stop 01/23/25 at 20:22; Status DC Propofol 200 mg STK-MED ONCE IV; Start 01/23/25 at 20:21; Stop 01/23/25 at 20:22; Status DC Midazolam HCl 2 mg STK-MED ONCE .ROUTE; Start 01/23/25 at 20:22; Stop 01/23/25 at 20:22; Status DC Rocuronium [place] 50 mg STK-MED ONCE .ROUTE; Start 01/23/25 at 20:22; Stop 01/23/25 at 20:22; Status DC Fentanyl Citrate 100 mcg STK-MED ONCE .ROUTE; Start 01/23/25 at 20:22; Stop 01/23/25 at 20:22; Status DC Rocuronium [place] 50 mg STK-MED ONCE .ROUTE; Start 01/23/25 at 20:52; Stop 01/23/25 at 20:52; Status DC Glycopyrrolate 1 mg STK-MED ONCE .ROUTE; Start 01/23/25 at 21:03; Stop 01/23/25 at 21:03; Status DC Tranexamic Acid 1,000 mg STK-MED ONCE .ROUTE; Start 01/23/25 at 21:06; Stop 01/23/25 at 21:07; Status DC Cefazolin Sodium 1 gm STK-MED ONCE .ROUTE; Start 01/23/25 at 21:06; Stop 01/23/25 at 21:07; Status DC Fentanyl Citrate 100 mcg STK-MED ONCE .ROUTE; Start 01/23/25 at 21:12; Stop 01/23/25 at 21:12; Status DC Phenylephrine HCl 10 mg STK-MED ONCE IV; Start 01/23/25 at 22:37; Stop 01/23/25 at 22:38; Status DC Sodium Chloride 10 ml STK-MED ONCE .ROUTE; Start 01/23/25 at 22:37; Stop 01/23/25 at 22:38; Status DC Dexamethasone Sodium Phosphate 10 mg STK-MED ONCE .ROUTE; Start 01/23/25 at 22:42; Stop 01/23/25 at 22:42; Status DC Ondansetron HCl 4 mg STK-MED ONCE .ROUTE; Start 01/23/25 at 22:42; Stop 01/23/25 at 22:42; Status DC Cefazolin Sodium 2 gm STK-MED ONCE IVPB Last administered on 01/23/25at 20:30; Start 01/23/25 at 20:30; Stop 01/23/25 at 23:36; Status DC Tranexamic Acid 1,000 mg STK-MED ONCE IV Last administered on 01/23/25at 21:10; Start 01/23/25 at 21:10; Stop 01/23/25 at 23:36; Status DC Cefazolin Sodium 3 gm STK-MED ONCE IRRIG Last administered on 01/23/25at 23:28; Start 01/23/25 at 23:28; Stop 01/23/25 at 23:36; Status DC Ropivacaine 150 mg STK-MED ONCE .ROUTE; Start 01/24/25 at 00:15; Stop 01/24/25 at 00:15; Status DC Sodium Chloride 10 ml STK-MED ONCE .ROUTE; Start 01/24/25 at 00:16; Stop 01/24/25 at 00:16; Status DC Sodium Chloride 1,000 ml @ 100 mls/hr Q10H IV Last administered on 01/24/25at 02:34; Start 01/24/25 at 01:00; Stop 01/25/25 at 00:59 Polyethylene Glycol 17 gm DAILY PO Last administered on 01/24/25at 09:42; Start 01/24/25 at 09:00; Stop 02/23/25 at 08:59 Bisacodyl 10 mg DAILY PRN RC; Start 01/27/25 at 01:00; Stop 02/26/25 at 00:59 Ketorolac Tromethamine 15 mg Q6H PRN IV; Start 01/24/25 at 01:00; Stop 01/24/25 at 00:55; Status DC Famotidine 20 mg BID PO Last administered on 01/24/25at 09:41; Start 01/24/25 at 09:00; Stop 02/23/25 at 08:59 Ferrous Fumarate 324 mg DAILY PRN PO; Start 01/24/25 at 01:00; Stop 02/23/25 at 00:59 Calcium Carbonate 500 mg Q12H PRN PO; Start 01/24/25 at 01:00; Stop 02/23/25 at 00:59 Diphenhydramine HCl 25 mg Q6H PRN IVP; Start 01/24/25 at 01:00; Stop 02/23/25 at 00:59 Ondansetron HCl 4 mg Q6H PRN IVP; Start 01/24/25 at 01:00; Stop 01/24/25 at 00:55; Status DC Cefazolin Sodium 2 gm Q8H IVP Last administered on 01/24/25at 14:47; Start 01/24/25 at 06:00; Stop 01/24/25 at 14:01; Status DC Potassium Chloride 100 ml @ 100 mls/hr AD PRN IV; Start 01/24/25 at 01:00; Stop 02/23/25 at 00:59 Potassium Chloride 20 meq AD PRN PO; Start 01/24/25 at 01:00; Stop 02/23/25 at 00:59 Potassium Chloride 20 meq AD PRN PO; Start 01/24/25 at 01:00; Stop 02/23/25 at 00:59 Heparin Sodium (Porcine) 5,000 unit Q12H SQ Last administered on 01/24/25at 09:47; Start 01/24/25 at 09:00; Stop 02/23/25 at 08:59 FAITH BETH MD Jan 24, 2025 15:35
[2025-01-24] MEDS: HYDROcodone/APAP 5/325 1 TAB TABLET PO PRN (22:43)
[2025-01-25] VITALS (8 sets, daily range): BP systolic 118–149; BP diastolic 46–54; PULSE 73–85; RESP 16–18; TEMP 97.6–99.8; O2SAT 78–96
[2025-01-25 04:28] LABS: CREATININE 0.7 mg/dL (0.5-1.0); GLOMERULAR FILTR. RATE CALC 84.0 mL/min (>90); GLUCOSE,RANDOM 103.0 mg/dL (70-105); SODIUM SERUM 136.0 mmol/L (136-145); UREA NITROGEN, BLOOD 17.0 mg/dL (7-18)
[2025-01-25] MEDS: HYDROcodone/APAP 5/325 1 TAB TABLET PO PRN (05:01)
[2025-01-25 05:32] LABS: NUCLEATED RED BLOOD CELLS 0.0 % (0.0-0.19); PLATELET COUNT (AUTO) 294.0 K/uL (130-400); RED BLOOD CELL COUNT(AUTO) 2.42 MIL/uL (4.00-5.50); RED CELL DISTRIBUTION WIDTH 13.6 % (11.0-15.5); WHITE BLOOD COUNT (AUTO) 9.1 K/uL (4.8-10.8)
--- NOTE | 2025-01-25 12:30 | PN ---
POD # 2.. Status post ORIF of left femur periprosthetic fracture, evacuation of seroma and hematoma. Vital signs stable, afebrile. Patient is seated in a chair this morning. Reports adequate pain control. Has not been minimal physical therapy. She is in no distress with normal ventilatory effort The drain output has decreased significantly from yesterday to today, steal serosanguineous. The dressing is clean and dry with no signs of bleeding or infection. The distal neurovascular exam is normal. Assessment: Status post ORIF periprosthetic fracture. Plan: Continue physical therapy. Change dressings tomorrow and likely remove drains. Vitals/Labs Vital Signs Date Time Temp Pulse Resp B/P (MAP) Pulse Ox O2 Delivery O2 Flow Rate FiO2 01/25/25 08:00 78 Room Air* 0 21 01/25/25 08:00 98.2 78 16 129/53 Laboratory Tests 01/25/25 03:47 01/25/25 05:26 Medications Current Medications Morphine Sulfate 2 mg ONCE IVP Last administered on 01/22/25at 20:05; Start 01/22/25 at 20:00; Stop 01/22/25 at 20:56; Status DC Ondansetron HCl 4 mg ONCE IVP Last administered on 01/22/25at 20:05; Start 01/22/25 at 20:00; Stop 01/22/25 at 20:56; Status DC Morphine Sulfate 4 mg ONCE IVP Last administered on 01/22/25at 20:31; Start 01/22/25 at 20:30; Stop 01/22/25 at 20:56; Status DC Lactated Ringer's 1,000 ml @ 75 mls/hr [id number] IV Last administered on 01/23/25at 09:50; Start 01/22/25 at 21:00; Stop 02/21/25 at 20:59 Acetaminophen 650 mg Q6H PRN PO; Start 01/22/25 at 21:00; Stop 02/21/25 at 20:59 Acetaminophen 650 mg Q6H PRN RC; Start 01/22/25 at 21:00; Stop 02/21/25 at 20:59 Acetaminophen/ Hydrocodone Bitart FOR MODERATE PAIN SC... Q6H PRN PO; Start 01/22/25 at 21:00; Stop 01/24/25 at 19:44; Status DC Lactulose 20 gm Q6H PRN PO; Start 01/22/25 at 21:00; Stop 02/21/25 at 20:59 Docusate Sodium 100 mg BID PRN PO; Start 01/22/25 at 21:00; Stop 02/21/25 at 20:59 Temazepam 15 mg HS PRN PO Last administered on 01/25/25at 01:13; Start 01/22/25 at 21:00; Stop 02/21/25 at 20:59 Ondansetron HCl 4 mg Q6H PRN IVP; Start 01/22/25 at 21:00; Stop 02/21/25 at 20:59 Labetalol HCl 10 mg Q2H PRN IV Last administered on 01/22/25at 22:37; Start 01/22/25 at 21:00; Stop 02/21/25 at 20:59 Hydromorphone HCl 0.5 mg Q4H PRN IVP Last administered on 01/24/25at 19:37; Start 01/22/25 at 21:30; Stop 01/27/25 at 21:29 Insulin Human Regular INSULIN SLIDING SCAL... ACHS SQ; Start 01/22/25 at 21:00; Stop 01/24/25 at 05:27; Status DC Ketorolac Tromethamine 15 mg Q6H PRN IV Last administered on 01/25/25at 09:08; Start 01/22/25 at 21:00; Stop 01/27/25 at 20:59 Famotidine 20 mg BID IV Last administered on 01/23/25at 08:34; Start 01/22/25 at 21:00; Stop 01/24/25 at 00:55; Status DC Simvastatin 20 mg HS PO Last administered on 01/22/25at 21:14; Start 01/22/25 at 21:00; Stop 01/23/25 at 07:08; Status DC Simvastatin 20 mg HS PO Last administered on 01/24/25at 19:37; Start 01/23/25 at 21:00; Stop 02/22/25 at 20:59 Cefazolin Sodium 2 gm STK-MED ONCE .ROUTE; Start 01/23/25 at 19:37; Stop 01/23/25 at 19:38; Status DC Lidocaine HCl 100 mg STK-MED ONCE .ROUTE; Start 01/23/25 at 20:21; Stop 01/23/25 at 20:22; Status DC Propofol 200 mg STK-MED ONCE IV; Start 01/23/25 at 20:21; Stop 01/23/25 at 20:22; Status DC Midazolam HCl 2 mg STK-MED ONCE .ROUTE; Start 01/23/25 at 20:22; Stop 01/23/25 at 20:22; Status DC Rocuronium [place] 50 mg STK-MED ONCE .ROUTE; Start 01/23/25 at 20:22; Stop 01/23/25 at 20:22; Status DC Fentanyl Citrate 100 mcg STK-MED ONCE .ROUTE; Start 01/23/25 at 20:22; Stop 01/23/25 at 20:22; Status DC Rocuronium [place] 50 mg STK-MED ONCE .ROUTE; Start 01/23/25 at 20:52; Stop 01/23/25 at 20:52; Status DC Glycopyrrolate 1 mg STK-MED ONCE .ROUTE; Start 01/23/25 at 21:03; Stop 01/23/25 at 21:03; Status DC Tranexamic Acid 1,000 mg STK-MED ONCE .ROUTE; Start 01/23/25 at 21:06; Stop 01/23/25 at 21:07; Status DC Cefazolin Sodium 1 gm STK-MED ONCE .ROUTE; Start 01/23/25 at 21:06; Stop 01/23/25 at 21:07; Status DC Fentanyl Citrate 100 mcg STK-MED ONCE .ROUTE; Start 01/23/25 at 21:12; Stop 01/23/25 at 21:12; Status DC Phenylephrine HCl 10 mg STK-MED ONCE IV; Start 01/23/25 at 22:37; Stop 01/23/25 at 22:38; Status DC Sodium Chloride 10 ml STK-MED ONCE .ROUTE; Start 01/23/25 at 22:37; Stop 01/23/25 at 22:38; Status DC Dexamethasone Sodium Phosphate 10 mg STK-MED ONCE .ROUTE; Start 01/23/25 at 22:42; Stop 01/23/25 at 22:42; Status DC Ondansetron HCl 4 mg STK-MED ONCE .ROUTE; Start 01/23/25 at 22:42; Stop 01/23/25 at 22:42; Status DC Cefazolin Sodium 2 gm STK-MED ONCE IVPB Last administered on 01/23/25at 20:30; Start 01/23/25 at 20:30; Stop 01/23/25 at 23:36; Status DC Tranexamic Acid 1,000 mg STK-MED ONCE IV Last administered on 01/23/25at 21:10; Start 01/23/25 at 21:10; Stop 01/23/25 at 23:36; Status DC Cefazolin Sodium 3 gm STK-MED ONCE IRRIG Last administered on 01/23/25at 23:28; Start 01/23/25 at 23:28; Stop 01/23/25 at 23:36; Status DC Ropivacaine 150 mg STK-MED ONCE .ROUTE; Start 01/24/25 at 00:15; Stop 01/24/25 at 00:15; Status DC Sodium Chloride 10 ml STK-MED ONCE .ROUTE; Start 01/24/25 at 00:16; Stop 01/24/25 at 00:16; Status DC Sodium Chloride 1,000 ml @ 100 mls/hr Q10H IV Last administered on 01/24/25at 02:34; Start 01/24/25 at 01:00; Stop 01/25/25 at 00:59; Status DC Polyethylene Glycol 17 gm DAILY PO Last administered on 01/25/25at 09:07; Start 01/24/25 at 09:00; Stop 02/23/25 at 08:59 Bisacodyl 10 mg DAILY PRN RC; Start 01/27/25 at 01:00; Stop 02/26/25 at 00:59 Ketorolac Tromethamine 15 mg Q6H PRN IV; Start 01/24/25 at 01:00; Stop 01/24/25 at 00:55; Status DC Famotidine 20 mg BID PO Last administered on 01/25/25at 09:07; Start 01/24/25 at 09:00; Stop 02/23/25 at 08:59 Ferrous Fumarate 324 mg DAILY PRN PO; Start 01/24/25 at 01:00; Stop 02/23/25 at 00:59 Calcium Carbonate 500 mg Q12H PRN PO; Start 01/24/25 at 01:00; Stop 02/23/25 at 00:59 Diphenhydramine HCl 25 mg Q6H PRN IVP; Start 01/24/25 at 01:00; Stop 02/23/25 at 00:59 Ondansetron HCl 4 mg Q6H PRN IVP; Start 01/24/25 at 01:00; Stop 01/24/25 at 00:55; Status DC Cefazolin Sodium 2 gm Q8H IVP Last administered on 01/24/25at 14:47; Start 01/24/25 at 06:00; Stop 01/24/25 at 14:01; Status DC Potassium Chloride 100 ml @ 100 mls/hr AD PRN IV; Start 01/24/25 at 01:00; Stop 02/23/25 at 00:59 Potassium Chloride 20 meq AD PRN PO; Start 01/24/25 at 01:00; Stop 02/23/25 at 00:59 Potassium Chloride 20 meq AD PRN PO; Start 01/24/25 at 01:00; Stop 02/23/25 at 00:59 Heparin Sodium (Porcine) 5,000 unit Q12H SQ Last administered on 01/25/25at 09:16; Start 01/24/25 at 09:00; Stop 02/23/25 at 08:59 Acetaminophen/ Hydrocodone Bitart 1 tab Q6H PRN PO Last administered on 01/25/25at 11:29; Start 01/24/25 at 22:30; Stop 01/29/25 at 22:29 Acetaminophen/ Hydrocodone Bitart 2 tab Q6H PRN PO Last administered on 01/24/25at 22:43; Start 01/24/25 at 22:30; Stop 01/29/25 at 22:29 FAITH BETH MD Jan 25, 2025 12:30
[2025-01-25 13:00] LABS: NUCLEATED RED BLOOD CELLS 0.0 % (0.0-0.19); PLATELET COUNT (AUTO) 327.0 K/uL (130-400); RED BLOOD CELL COUNT(AUTO) 2.55 MIL/uL (4.00-5.50); RED CELL DISTRIBUTION WIDTH 13.8 % (11.0-15.5); WHITE BLOOD COUNT (AUTO) 8.7 K/uL (4.8-10.8)
[2025-01-25] MEDS: FERROUS FUMARATE 324 MG TABLET PO PRN (14:41)
--- NOTE | 2025-01-25 14:41 | PN ---
[facility] PROGRESS NOTE Date of Service: Jan 25, 2025 Time of Service: 14:37 SUBJECTIVE: [ 01/23 Patient is 84 years old female with a past medical history of left hip osteoarthritis s/p left total hip arthroplasty 01/06/[address] Marroquin, HLD, tonsillectomy, bilateral knee arthroplasty, who came to emergency department s/p fall. Patient stated that two was driving a golf cart back to her home and while trying to get to home she stepped into a hole and she fell forward and landed on her hands. Patient denies hitting head. Patient stated that she heard a pop and severe pain and her daughter who was standing close to her call 911. She was brought to [facility] for further evaluation. X-ray of hip/pelvis was performed and showed markedly displaced fracture prosthesis of the left proximal femur extending from intertroch cleared region to proximal diaphysis. Pelvis x-ray showed mildly displaced periprosthetic fracture of the left proximal femur extending from the left intertrochanteric region to the proximal diaphysis. Similar findings on the recent radiology of the left hip. Knee x-ray showed no acute findings in the settings of the left total knee arthroplasty. Left knee joint effusion and infrapatellar bursitis. Chest x-ray showed mild cardiomegaly. Dr. Marroquin was consulted to evaluate the patient. Most recent vital signs temperature 98.8 pulse 66 respiration 18 blood pressure 120/45 patient is on room air satting 94%. WBC 8.4 Hemoglobin 9.6 hematocrit 30.4 Platelets 340 UA negative . [id number] potassium 5.1 CO2 32 BUN 15 creatinine 0.7 GFR random glucose 103 magnesium 2.1 Calcium 8.9 hemoglobin A1c 5.0 albumin 2.9 bilirubin 0.5 AST 19 ALT 14 Patient will be admitted under hospitalist care for further evaluation/recommendation. A.m. labs. 01/24 patient was seen by nurse practitioner and physician during rounding in room 412. Patient is s/p ORIF of L hip with dr Marroquin. Pt on cler liquid diet and advance as tolerated. Left XR femur pending. Case management consulted for possible rehab. PT consulted for evaluation. WBCs 11.8. We will continue to monitor patient in the meantime. A.m. labs.] 01/25 84 years old female with a past medical history of left hip osteoarthritis s/p left total hip arthroplasty 01/06/[address] Marroquin, HLD, tonsillectomy, bilateral knee arthroplasty, who came to emergency department s/p fall. X-ray of hip/pelvis was performed and showed markedly displaced fracture prosthesis of the left proximal femur. Patient is s/p Open reduction internal fixation of left proximal femur periprosthetic fracture with placement of bone allograft, evacuation of seroma and hematoma and primary closure over drains 01/23/25, tolerated procedure well. At the time of my visit patient doing well, alert oriented x3, hemodynamically stable, mild drop in hemoglobin noted to 7.5, continue to follow CBC, transfuse as needed. Continue to follow orthopedic input and recommendation. REVIEW OF SYSTEMS CONSTITUTIONAL: Denies fevers, chills, or night sweats. No unintentional weight loss reported. NEUROLOGICAL: Denies headache, amaurosis fugax, motor weakness, sensory deficit, vertigo/spinning sensation, gait abnormalities, or tremors. ENT: No hearing loss, otalgia, otorrhea, rhinitis, rhinorrhea, hoarseness, or sore throat. CARDIOVASCULAR: Denies any exertional angina, dyspnea on exertion, orthopnea, paroxysmal nocturnal dyspnea, palpitations, life-threatening arrhythmias, claudication. PULMONARY: Denies any shortness of breath, cough, phlegm/sputum, hemoptysis, pleuritic chest pain. SLEEP: Denies morning headaches, daytime somnolence or napping. Denies diff iculty falling asleep, staying asleep, waking from sleep. Denies knowledge of snoring. GASTROINTESTINAL: Denies any type of dysphagia to either liquids or solids. Denies nausea, vomiting, pyrosis, early satiety, abdominal pain, diarrhea, constipation, or changes in stool consistency or caliber. Denies coffee-ground emesis, hematemesis, hematochezia, or melanotic stools. GENITOURINARY: Denies frequency, urgency, nocturia, hematuria or incontinence (Storage/Irritative symptoms.) Low urinary stream, straining to void, urinary intermittency or hesitancy, splitting of the voiding stream, terminal dribbling. ENDOCRINOLOGIC: Denies polyuria, polydipsia, polyphagia or heat/cold in tolerances. HEMATOLOGIC: Denies thrombophilia/previous clots, or coagulopathy/bleeding disorders. ONCOLOGIC: Denies personal history of malignancy. DERMATOLOGIC: Denies rashes or pruritus. S/p left or ORIF hip PSYCHIATRIC: Denies any suicidal or homicidal ideation. Denies hallucinations. PHYSICAL EXAM GENERAL APPEARANCE: The patient is awake, alert, and oriented, in no acute cardiopulmonary distress. NEUROLOGICAL: Cranial nerves II-XII grossly intact. Motor is 5/5 in bilateral upper and lower extremities proximal to distal. No sensory deficits. HEENT: Face is symmetric. Pupils are equal and reactive. Extraocular movements are intact. NECK: Supple. No JVD. No thyromegaly. No submental, submandibular, pre-/postauricular, occipital or supraclavicular lymphadenopathy. CHEST: Normal chest expansion. No Telemetry. LUNGS: Absence of any rales, rhonchi or any wheezing. CARDIOVASCULAR: Regular. S1 and S2 normal. No appreciable rubs, murmurs or gallops. ABDOMEN: Soft, nontender, and nondistended. There is no rebound, voluntary guarding, or rigidity. : Deferred. No Monroy. EXTREMITIES: Non-edematous and not cyanotic. No clubbing. Good capillary refill. Complains of left hip pain s/p fall SKIN: No skin breakdown. Vital Signs (last 8hr) Date Time Temp Pulse Resp B/P (MAP) Pulse Ox O2 Delivery O2 Flow Rate FiO2 01/25/25 12:00 98.1 85 16 149/46 96 Room Air 21 01/25/25 08:00 78 Room Air* 0 21 01/25/25 08:00 98.2 78 16 129/53 96 Room Air 21 LABS: Laboratory: Test 01/25/25 12:53 01/25/25 11:28 01/25/25 03:47 01/24/25 04:01 Range/Units White Blood Count 8.7 4.8-10.8 K/uL Red Blood Count 2.55 L 4.00-5.50 MIL/uL Hemoglobin 8.0 L 12.0-16.0 g/dL Hematocrit 24.6 L 36-48 % Mean Corpuscular Volume 96.5 79-99 fL Mean Corpuscular Hemoglobin 31.4 27.0-33.0 pg Mean Corpuscular Hemoglobin Concent 32.5 32.0-36.0 g/dL Red Cell Distribution Width 13.8 11.0-15.5 % Platelet Count 327 130-400 K/uL Mean Platelet Volume 10.4 7.5-10.5 fL Nucleated Red Blood Cells 0.0 0.0-0.19 % Whole Blood Glucose 98 70-110 MG/DL Sodium Level 136 136-145 mmol/L Potassium Level 4.4 3.5-5.1 mmol/L Chloride Level 103 101-111 mmol/L Carbon Dioxide Level 29 21-32 mmol/L Blood Urea Nitrogen 17 7-18 mg/dL Creatinine 0.7 0.5-1.0 mg/dL Glomerular Filtration Rate Calc 84 >90 mL/min Random Glucose 103 70-105 mg/dL Total Calcium 8.1 L 8.5-10.1 mg/dL Immature Granulocyte % (Auto) 0.6 0-1 % Neutrophils (%) (Auto) 93.2 H 40.0-77.0 % Lymphocytes (%) (Auto) 3.7 L 21.0-51.0 % Monocytes (%) (Auto) 2.4 L 3.0-13.0 % Eosinophils (%) (Auto) 0.0 0.0-8.0 % Basophils (%) (Auto) 0.1 0.0-5.0 % Neutrophils # (Auto) 11.0 H 1.8-7.7 K/uL Lymphocytes # (Auto) 0.4 L 1.0-4.8 K/uL Monocytes # (Auto) 0.3 0.1-1.0 K/uL Eosinophils # (Auto) 0.00 0.00-0.70 K/uL Basophils # (Auto) 0.01 0.00-0.20 K/uL Absolute Immature Granulocyte (auto 0.07 0-1 K/uL White Cell Morphology Comment CONSISTENT W/DIFF Magnesium Level 1.90 1.80-2.40 mg/dL Total Bilirubin 0.5 0.2-1.0 mg/dL Aspartate Amino Transf (AST/SGOT) 23 10-37 U/L Alanine Aminotransferase (ALT/SGPT) 16 12-78 U/L Alkaline Phosphatase 80 50-136 U/L Total Protein 5.2 L 6.0-8.3 g/dL Albumin 2.4 L 3.5-5.0 g/dL Current Medications Medications (Trade) Dose Ordered Sig/Vandana Route PRN Reason Start Time Stop Time Status Last Admin Dose Admin Acetaminophen (TYLenol 325MG TAB) 650 mg Q6H PRN PO FEVER/MILD PAIN LEVEL 1-3 01/22/25 21:00 02/21/25 20:59 Acetaminophen (TYLenol 650MG SUPPOSITORY) 650 mg Q6H PRN RC FEVER / MILD PAIN 1-3 IF NPO 01/22/25 21:00 02/21/25 20:59 Acetaminophen/ Hydrocodone Bitart (NORco 5/325MG) 1 tab Q6H PRN PO MODERATE PAIN (4-6) 01/24/25 22:30 01/29/25 22:29 01/25/25 11:29 1 TAB Acetaminophen/ Hydrocodone Bitart (NORco 5/325MG) 2 tab Q6H PRN PO SEVERE PAIN (7-10) 01/24/25 22:30 01/29/25 22:29 01/24/25 22:43 2 TAB Acetaminophen/ Hydrocodone Bitart (NORco 5/325MG) FOR MODERATE PAIN SC... Q6H PRN PO PAIN 4-10 01/22/25 21:00 01/24/25 19:44 DC Bisacodyl (DulcoLAX) 10 mg DAILY PRN RC CONSTIPATION 01/27/25 01:00 02/26/25 00:59 Calcium Carbonate (Oyster Shell Ca 500mg Tab) 500 mg Q12H PRN PO GIVE IF SERUM CA LESS THAN 8 01/24/25 01:00 02/23/25 00:59 Cefazolin Sodium (Ancef) 2 gm Q8H IVP 01/24/25 06:00 01/24/25 14:01 DC 01/24/25 14:47 2 GM Diphenhydramine HCl (BENAdryl INJ) 25 mg Q6H PRN IVP ITCHING 01/24/25 01:00 02/23/25 00:59 Docusate Sodium (COLace 100MG CAP) 100 mg BID PRN PO c 01/22/25 21:00 02/21/25 20:59 Famotidine (Pepcid 20mg Vial) 20 mg BID IV 01/22/25 21:00 01/24/25 00:55 DC 01/23/25 08:34 20 MG Famotidine (Pepcid 20mg Tab) 20 mg BID PO 01/24/25 09:00 02/23/25 08:59 01/25/25 09:07 20 MG Ferrous Fumarate (Hemocyte) 324 mg DAILY PRN PO IF HEMOGLOBIN LESS THAN 9 01/24/25 01:00 02/23/25 00:59 Heparin Sodium (Porcine) (HEParin 5,000 UNIT VIAL) 5,000 unit Q12H SQ 01/24/25 09:00 02/23/25 08:59 01/25/25 09:16 5,000 UNIT Hydromorphone HCl (DiLAUDid 0.5MG INJ) 0.5 mg Q4H PRN IVP PAIN LEVEL 7 TO 10 IF NPO 01/22/25 21:30 01/27/25 21:29 01/24/25 19:37 0.5 MG Insulin Human Regular (humuLIN R 100 UNIT/ML 3ML) INSULIN SLIDING SCAL... ACHS SQ 01/22/25 21:00 01/24/25 05:27 DC Ketorolac Tromethamine (toRADol) 15 mg Q6H PRN IV MODERATE PAIN (4-6) IF NPO 01/22/25 21:00 01/27/25 20:59 01/25/25 09:08 15 MG Ketorolac Tromethamine (toRADol) 15 mg Q6H PRN IV BREAKTHROUGH PAIN 01/24/25 01:00 01/24/25 00:55 DC Labetalol HCl (TRANdate 20MG SYG) 10 mg Q2H PRN IV SBP GREATER THAN 160 01/22/25 21:00 02/21/25 20:59 01/22/25 22:37 10 MG Lactated Ringer's 1,000 ml @ 75 mls/hr [id number] IV 01/22/25 21:00 02/21/25 20:59 01/23/25 09:50 75 MLS/HR Lactulose (Constulose 20gm/ 30ml Udcup) 20 gm Q6H PRN PO CONSTIPATION 01/22/25 21:00 02/21/25 20:59 Morphine Sulfate (morPHINE 2MG SYG) 2 mg ONCE IVP 01/22/25 20:00 01/22/25 20:56 DC 01/22/25 20:05 2 MG Morphine Sulfate (morPHINE 4MG SYG) 4 mg ONCE IVP 01/22/25 20:30 01/22/25 20:56 DC 01/22/25 20:31 4 MG Ondansetron HCl (zoFRAN 4MG INJ) 4 mg ONCE IVP 01/22/25 20:00 01/22/25 20:56 DC 01/22/25 20:05 4 MG Ondansetron HCl (zoFRAN 4MG INJ) 4 mg Q6H PRN IVP NAUSEA/VOMITING 01/22/25 21:00 02/21/25 20:59 Ondansetron HCl (zoFRAN 4MG INJ) 4 mg Q6H PRN IVP NAUSEA/VOMITING 01/24/25 01:00 01/24/25 00:55 DC Polyethylene Glycol (MIRalax 3350 17 GM POWD.PACK) 17 gm DAILY PO 01/24/25 09:00 02/23/25 08:59 01/25/25 09:07 17 GM Potassium Chloride 100 ml @ 100 mls/hr AD PRN IV POTASSIUM PROTOCOL 01/24/25 01:00 02/23/25 00:59 Potassium Chloride (K-Dur/Klor-Con 20meq) 20 meq AD PRN PO POTASSIUM PROTOCOL 01/24/25 01:00 02/23/25 00:59 Potassium Chloride (KCl 10% Elixir 20meq/15ml) 20 meq AD PRN PO POTASSIUM PROTOCOL 01/24/25 01:00 02/23/25 00:59 Simvastatin (zoCOR) 20 mg HS PO 01/22/25 21:00 01/23/25 07:08 DC 01/22/25 21:14 20 MG Simvastatin (zoCOR) 20 mg HS PO 01/23/25 21:00 02/22/25 20:59 01/24/25 19:37 20 MG Sodium Chloride 1,000 ml @ 100 mls/hr Q10H IV 01/24/25 01:00 01/25/25 00:59 DC 01/24/25 02:34 100 MLS/HR Temazepam (restORIL 15 MG CAP) 15 mg HS PRN PO INSOMNIA/SLEEP 01/22/25 21:00 02/21/25 20:59 01/25/25 01:13 15 MG DIAGNOSTICS / RADIOLOGY: [ ] ASSESSMENT: Displaced periprosthetic fracture of left proximal femur per hip/pelvis x-ray POA Status post Open reduction internal fixation of left proximal femur periprosthetic fracture with placement of bone allograft, evacuation of seroma and hematoma and primary closure over drains 01/23/25 Infrapatellar bursitis per left knee x-ray POA s/p fall POA Uncontrolled hypertension POA Multifactorial anemia POA Acute dehydration POA PLAN: NEURO: Minimize central acting medications as possible. Fall Precautions. Well lighted room through the day and minimize interruptions through the night to prevent acute delirium. PULMONARY: Supplemental 02 as needed BiPAP as necessary, for respiratory distress Titrate Fio2 to keep Spo2 > or = 90% DuoNebs and CPT as needed IS hourly while awake for pulmonary hygiene prn Out of bed to chair as tolerated Maintain aspiration precautions at all times CARDIOVASCULAR: Follow hemodynamics. Vital signs per facility protocol GI & NUTRITION: Continue nutritional support Aspirations precautions Prokinetic agents and laxatives as needed KIDNEYS & ELECTROLYTES: Strict monitoring of intake and output Daily weights Avoid nephrotoxic agents Monitor electrolytes and replace as needed Goal urine output of 30mL/hr or 0.5mL/kg/hr Medications to be dosed according to renal function. Avoid contrast if possible ENDOCRINE: Maintain blood glucose between 100-180 at all times. Insulin sliding scale for blood glucose management Hypoglycemia and hyperglycemia protocol in place INFECTIOUS DISEASE: Trend temperature, WBC and procalcitonin level Follow cultures, deescalate antibiotics as soon as possible. Panculture if new onset fever HEMATOLOGY & COAGULATION: Monitor H&H. Keep Hgb > 7 Transfuse 1 unit of PRBC for Hgb < 7 Transfuse 1 pack of platelets of platelets < 20, 000 Watch for any signs and symptoms of bleeding SKIN: Pressure ulcer prevention per facility protocol Specialty mattress as needed ORTHO/REHAB Continue PT/OT PRN: MEDICATIONS Tylenol 650 mg po every 4 hrs for fever zofran 4 mg IV every 6 hrs for n/v Hydralazine 5 mg IV every 4 hrs systolic pressure > 160 bowel regiment: lactulose 20 gm PO BID PRN constipation Supportive measures: Continue GI and DVT prophylaxis Disposition: Pending improvement in clinical condition. All questions answered time spent: > 35 min ELE PORTER MD Jan 25, 2025 14:41
[2025-01-25] MEDS: MAGNESIUM HYDROXIDE 30 ML/UDCUP PO SCH (21:03)
[2025-01-26 04:00] VITALS: BP 138/68; PULSE 73; RESP 18; TEMP 98.7
[2025-01-26 04:27] LABS: NUCLEATED RED BLOOD CELLS 0.0 % (0.0-0.19); PLATELET COUNT (AUTO) 335.0 K/uL (130-400); RED BLOOD CELL COUNT(AUTO) 2.62 MIL/uL (4.00-5.50); RED CELL DISTRIBUTION WIDTH 13.6 % (11.0-15.5); WHITE BLOOD COUNT (AUTO) 6.6 K/uL (4.8-10.8)
[2025-01-26 04:41] LABS: ASPARTATE AMINOTRANSFERASE 29.0 U/L (10-37); CREATININE 0.6 mg/dL (0.5-1.0); GLOMERULAR FILTR. RATE CALC 87.0 mL/min (>90); GLUCOSE,RANDOM 92.0 mg/dL (70-105); SODIUM SERUM 139.0 mmol/L (136-145); TOTAL PROTEIN, SERUM 5.3 g/dL (6.0-8.3); UREA NITROGEN, BLOOD 11.0 mg/dL (7-18)
[2025-01-26 08:00] VITALS: O2SAT 99
[2025-01-26 09:41] LABS: % IRON SATURATION 8.6 % (22-44); IRON, SERUM 14.0 mcg/dL (50-170)
[2025-01-26] MEDS ORDERED: COMPOUND IV REFRIGERATED 1 EACH IVSOLN MISC PRN (14:30)
[2025-01-26] MEDS ORDERED: COMPOUND IV MISC 1 EACH IVSOLN MISC PRN (14:30)
--- NOTE | 2025-01-26 15:30 | NUR ---
WOUND CARE DRAINED TRU DRAINS ( DRAIN #1-30 ML DRAIN #2- 10 ML). CLEANED INCISION AREA WITH BETADINE, REMOVED DRAINS SLOWLY AND GENTLY, REMOVE FLUID THAT LEAKED OUT AFTER REMOVAL. CLEANED SITE AREA WITH BETADINE AND APPLIED THICK PADDING WITH 4X4'S AND COVERED SECURELY WITH TAPE.
--- NOTE | 2025-01-26 15:39 | PN ---
[facility] PROGRESS NOTE Date of Service: Jan 26, 2025 Time of Service: 15:21 SUBJECTIVE: [ 01/23 Patient is 84 years old female with a past medical history of left hip osteoarthritis s/p left total hip arthroplasty 01/06/[address] Marroquin, HLD, tonsillectomy, bilateral knee arthroplasty, who came to emergency department s/p fall. Patient stated that two was driving a golf cart back to her home and while trying to get to home she stepped into a hole and she fell forward and landed on her hands. Patient denies hitting head. Patient stated that she heard a pop and severe pain and her daughter who was standing close to her call 911. She was brought to [facility] for further evaluation. X-ray of hip/pelvis was performed and showed markedly displaced fracture prosthesis of the left proximal femur extending from intertroch cleared region to proximal diaphysis. Pelvis x-ray showed mildly displaced periprosthetic fracture of the left proximal femur extending from the left intertrochanteric region to the proximal diaphysis. Similar findings on the recent radiology of the left hip. Knee x-ray showed no acute findings in the settings of the left total knee arthroplasty. Left knee joint effusion and infrapatellar bursitis. Chest x-ray showed mild cardiomegaly. Dr. Marroquin was consulted to evaluate the patient. Most recent vital signs temperature 98.8 pulse 66 respiration 18 blood pressure 120/45 patient is on room air satting 94%. WBC 8.4 Hemoglobin 9.6 hematocrit 30.4 Platelets 340 UA negative . [id number] potassium 5.1 CO2 32 BUN 15 creatinine 0.7 GFR random glucose 103 magnesium 2.1 Calcium 8.9 hemoglobin A1c 5.0 albumin 2.9 bilirubin 0.5 AST 19 ALT 14 Patient will be admitted under hospitalist care for further evaluation/recommendation. A.m. labs. 01/24 patient was seen by nurse practitioner and physician during rounding in room 412. Patient is s/p ORIF of L hip with dr Marroquin. Pt on cler liquid diet and advance as tolerated. Left XR femur pending. Case management consulted for possible rehab. PT consulted for evaluation. WBCs 11.8. We will continue to monitor patient in the meantime. A.m. labs.] 01/25 84 years old female with a past medical history of left hip osteoarthritis s/p left total hip arthroplasty 01/06/[address] Marroquin, HLD, tonsillectomy, bilateral knee arthroplasty, who came to emergency department s/p fall. X-ray of hip/pelvis was performed and showed markedly displaced fracture prosthesis of the left proximal femur. Patient is s/p Open reduction internal fixation of left proximal femur periprosthetic fracture with placement of bone allograft, evacuation of seroma and hematoma and primary closure over drains 01/23/25, tolerated procedure well. At the time of my visit patient doing well, alert oriented x3, hemodynamically stable, mild drop in hemoglobin noted to 7.5, continue to follow CBC, transfuse as needed. Continue to follow orthopedic input and recommendation. 01/25/2025: Patient is seen in the room for 412. She is awake alert oriented x3. the patient described being active despite her age and mentioned a history of having hip replacement and she explained the circumstances of her fall, which occurred when she parked her car and walking on grass and stepped into a hole, causing her to fall and sustaining a fracture. She reported significant pain and had taken only a few steps since the incident. Today she said she is feelin g better compared to yesterday. Labs revealed WBC 6.6, RBC 2.62, hemoglobin 8.2, hematocrit 25.7, on 2 lytes are within the normal limits except total calcium 8.1 low, ionized calcium 1.10, iron panel studies revealed iron , TIBC 162, ferritin which seems to be high. Patient started on IV Venofer. Orthopedic consultation is still pending. Case management cleared for the [facility] health. REVIEW OF SYSTEMS CONSTITUTIONAL: Denies fevers, chills, or night sweats. No unintentional weight loss reported. NEUROLOGICAL: Denies headache, amaurosis fugax, motor weakness, sensory deficit, vertigo/spinning sensation, gait abnormalities, or tremors. ENT: No hearing loss, otalgia, otorrhea, rhinitis, rhinorrhea, hoarseness, or sore throat. CARDIOVASCULAR: Denies any exertional angina, dyspnea on exertion, orthopnea, paroxysmal nocturnal dyspnea, palpitations, life-threatening arrhythmias, claudication. PULMONARY: Denies any shortness of breath, cough, phlegm/sputum, hemoptysis, pleuritic chest pain. SLEEP: Denies morning headaches, daytime somnolence or napping. Denies difficulty falling asleep, staying asleep, waking from sleep. Denies knowledge of snoring. GASTROINTESTINAL: Denies any type of dysphagia to either liquids or solids. Denies nausea, vomiting, pyrosis, early satiety, abdominal pain, diarrhea, constipation, or changes in stool consistency or caliber. Denies coffee-ground emesis, hematemesis, hematochezia, or melanotic stools. GENITOURINARY: Denies frequency, urgency, nocturia, hematuria or incontinence (Storage/Irritative symptoms.) Low urinary stream, straining to void, urinary intermittency or hesitancy, splitting of the voiding stream, terminal dribbling. ENDOCRINOLOGIC: Denies polyuria, polydipsia, polyphagia or heat/cold intolerances. HEMATOLOGIC: Denies thrombophilia/previous clots, or coagulopathy/bleeding disorders. ONCOLOGIC: Denies personal history of malignancy. DERMATOLOGIC: Denies rashes or pruritus. S/p left or ORIF hip PSYCHIATRIC: Denies any suicidal or homicidal ideation. Denies hallucinations. PHYSICAL EXAM GENERAL APPEARANCE: The patient is awake, alert, and oriented, in no acute cardiopulmonary distress. NEUROLOGICAL: Cranial nerves II-XII grossly intact. Motor is 5/5 in bilateral upper and lower extremities proximal to distal. No sensory deficits. HEENT: Face is symmetric. Pupils are equal and reactive. Extraocular movements are intact. NECK: Supple. No JVD. No thyromegaly. No submental, submandibular, pre- /postauricular, occipital or supraclavicular lymphadenopathy. CHEST: Normal chest expansion. No Telemetry. LUNGS: Absence of any rales, rhonchi or any wheezing. CARDIOVASCULAR: Regular. S1 and S2 normal. No appreciable rubs, murmurs or gallops. ABDOMEN: Soft, nontender, and nondistended. There is no rebound, voluntary guarding, or rigidity. : Deferred. No Monroy. EXTREMITIES: Non-edematous and not cyanotic. No clubbing. Good capillary ref ill. Complains of left hip pain s/p fall SKIN: No skin breakdown. Vital Signs (last 8hr) Date Time Temp Pulse Resp B/P (MAP) Pulse Ox O2 Delivery O2 Flow Rate FiO2 01/26/25 08:00 99 Room Air* 0 21 LABS: Laboratory: Test 01/26/25 14:15 01/26/25 11:15 01/26/25 04:09 Range/Units Total Calcium 8.1 L 8.5-10.1 mg/dL Ionized Calcium 1.10 L 1.15-1.33 MMOL/L Whole Blood Glucose 129 H 70-110 MG/DL White Blood Count 6.6 4.8-10.8 K/uL Red Blood Count 2.62 L 4.00-5.50 MIL/uL Hemoglobin 8.2 L 12.0-16.0 g/dL Hematocrit 25.7 L 36-48 % Mean Corpuscular Volume 98.1 79-99 fL Mean Corpuscular Hemoglobin 31.3 27.0-33.0 pg Mean Corpuscular Hemoglobin Concent 31.9 L 32.0-36.0 g/dL Red Cell Distribution Width 13.6 11.0-15.5 % Platelet Count 335 130-400 K/uL Mean Platelet Volume 10.6 H 7.5-10.5 fL Nucleated Red Blood Cells 0.0 0.0-0.19 % Reticulocyte Count (auto) 3.08365 H 0.42-2.23 % Immature Reticulocyte Fraction 22.80 H 0.18-0.48 % Sodium Level 139 136-145 mmol/L Potassium Level 4.0 3.5-5.1 mmol/L Chloride Level 104 101-111 mmol/L Carbon Dioxide Level 32 21-32 mmol/L Blood Urea Nitrogen 11 7-18 mg/dL Creatinine 0.6 0.5-1.0 mg/dL Glomerular Filtration Rate Calc 87 >90 mL/min Random Glucose 92 70-105 mg/dL Magnesium Level 2.20 1.80-2.40 mg/dL Iron Level 14 L 50-170 mcg/dL Total Iron Binding Capacity 162 L 250-450 mcg/dL Percent Iron Saturation 8.6 L 22-44 % Ferritin 153 H 15-150 ng/mL Total Bilirubin 0.4 0.2-1.0 mg/dL Aspartate Amino Transf (AST/SGOT) 29 10-37 U/L Alanine Aminotransferase (ALT/SGPT) 16 12-78 U/L Alkaline Phosphatase 70 50-136 U/L Total Protein 5.3 L 6.0-8.3 g/dL Albumin 2.3 L 3.5-5.0 g/dL Vitamin B12 Level 654 193-986 pg/mL Current Medications Medications (Trade) Dose Ordered Sig/Vandana Route PRN Reason Start Time Stop Time Status Last Admin Dose Admin Acetaminophen (TYLenol 325MG TAB) 650 mg Q6H PRN PO FEVER/MILD PAIN LEVEL 1-3 01/22/25 21:00 02/21/25 20:59 Acetaminophen (TYLenol 650MG SUPPOSITORY) 650 mg Q6H PRN RC FEVER / MILD PAIN 1-3 IF NPO 01/22/25 21:00 02/21/25 20:59 Acetaminophen/ Hydrocodone Bitart (NORco 5/325MG) 1 tab Q6H PRN PO MODERATE PAIN (4-6) 01/24/25 22:30 01/29/25 22:29 01/26/25 10:02 1 TAB Acetaminophen/ Hydrocodone Bitart (NORco 5/325MG) 2 tab Q6H PRN PO SEVERE PAIN (7-10) 01/24/25 22:30 01/29/25 22:29 01/26/25 06:10 2 TAB Acetaminophen/ Hydrocodone Bitart (NORco 5/325MG) FOR MODERATE PAIN SC... Q6H PRN PO PAIN 4-10 01/22/25 21:00 01/24/25 19:44 DC Bisacodyl (DulcoLAX) 10 mg DAILY PRN RC CONSTIPATION 01/27/25 01:00 02/26/25 00:59 Calcium Carbonate (Oyster Shell Ca 500mg Tab) 500 mg Q12H PRN PO GIVE IF SERUM CA LESS THAN 8 01/24/25 01:00 02/23/25 00:59 Cefazolin Sodium (Ancef) 2 gm Q8H IVP 01/24/25 06:00 01/24/25 14:01 DC 01/24/25 14:47 2 GM Diphenhydramine HCl (BENAdryl INJ) 25 mg Q6H PRN IVP ITCHING 01/24/25 01:00 02/23/25 00:59 Docusate Sodium (COLace 100MG CAP) 100 mg BID PRN PO c 01/22/25 21:00 02/21/25 20:59 Famotidine (Pepcid 20mg Vial) 20 mg BID IV 01/22/25 21:00 01/24/25 00:55 DC 01/23/25 08:34 20 MG Famotidine (Pepcid 20mg Tab) 20 mg BID PO 01/24/25 09:00 02/23/25 08:59 01/26/25 08:34 20 MG Ferrous Fumarate (Hemocyte) 324 mg DAILY PRN PO IF HEMOGLOBIN LESS THAN 9 01/24/25 01:00 02/23/25 00:59 01/25/25 14:41 324 MG Heparin Sodium (Porcine) (HEParin 5,000 UNIT VIAL) 5,000 unit Q12H SQ 01/24/25 09:00 02/23/25 08:59 01/26/25 08:42 5,000 UNIT Hydromorphone HCl (DiLAUDid 0.5MG INJ) 0.5 mg Q4H PRN IVP PAIN LEVEL 7 TO 10 IF NPO 01/22/25 21:30 01/27/25 21:29 01/24/25 19:37 0.5 MG Insulin Human Regular (humuLIN R 100 UNIT/ML 3ML) INSULIN SLIDING SCAL... ACHS SQ 01/22/25 21:00 01/24/25 05:27 DC Ketorolac Tromethamine (toRADol) 15 mg Q6H PRN IV MODERATE PAIN (4-6) IF NPO 01/22/25 21:00 01/27/25 20:59 01/25/25 09:08 15 MG Ketorolac Tromethamine (toRADol) 15 mg Q6H PRN IV BREAKTHROUGH PAIN 01/24/25 01:00 01/24/25 00:55 DC Labetalol HCl (TRANdate 20MG SYG) 10 mg Q2H PRN IV SBP GREATER THAN 160 01/22/25 21:00 02/21/25 20:59 01/22/25 22:37 10 MG Lactated Ringer's 1,000 ml @ 75 mls/hr [id number] IV 01/22/25 21:00 02/21/25 20:59 01/23/25 09:50 75 MLS/HR Lactulose (Constulose 20gm/ 30ml Udcup) 20 gm Q6H PRN PO CONSTIPATION 01/22/25 21:00 02/21/25 20:59 Magnesium Hydroxide (Milk Of Magnesium 30ml) 30 ml BID PO 01/25/25 21:00 02/24/25 20:59 01/26/25 08:34 30 ML Morphine Sulfate (morPHINE 2MG SYG) 2 mg ONCE IVP 01/22/25 20:00 01/22/25 20:56 DC 01/22/25 20:05 2 MG Morphine Sulfate (morPHINE 4MG SYG) 4 mg ONCE IVP 01/22/25 20:30 01/22/25 20:56 DC 01/22/25 20:31 4 MG Ondansetron HCl (zoFRAN 4MG INJ) 4 mg ONCE IVP 01/22/25 20:00 01/22/25 20:56 DC 01/22/25 20:05 4 MG Ondansetron HCl (zoFRAN 4MG INJ) 4 mg Q6H PRN IVP NAUSEA/VOMITING 01/22/25 21:00 02/21/25 20:59 Ondansetron HCl (zoFRAN 4MG INJ) 4 mg Q6H PRN IVP NAUSEA/VOMITING 01/24/25 01:00 01/24/25 00:55 DC Polyethylene Glycol (MIRalax 3350 17 GM POWD.PACK) 17 gm DAILY PO 01/24/25 09:00 02/23/25 08:59 01/26/25 08:34 17 GM Potassium Chloride 100 ml @ 100 mls/hr AD PRN IV POTASSIUM PROTOCOL 01/24/25 01:00 02/23/25 00:59 Potassium Chloride (K-Dur/Klor-Con 20meq) 20 meq AD PRN PO POTASSIUM PROTOCOL 01/24/25 01:00 02/23/25 00:59 Potassium Chloride (KCl 10% Elixir 20meq/15ml) 20 meq AD PRN PO POTASSIUM PROTOCOL 01/24/25 01:00 02/23/25 00:59 Simvastatin (zoCOR) 20 mg HS PO 01/22/25 21:00 01/23/25 07:08 DC 01/22/25 21:14 20 MG Simvastatin (zoCOR) 20 mg HS PO 01/23/25 21:00 02/22/25 20:59 01/25/25 21:03 20 MG Sodium Chloride 1,000 ml @ 100 mls/hr Q10H IV 01/24/25 01:00 01/25/25 00:59 DC 01/24/25 02:34 100 MLS/HR Temazepam (restORIL 15 MG CAP) 15 mg HS PRN PO INSOMNIA/SLEEP 01/22/25 21:00 02/21/25 20:59 01/25/25 22:19 15 MG DIAGNOSTICS / RADIOLOGY: [ ] ASSESSMENT: Displaced periprosthetic fracture of left proximal femur per hip/pelvis x-ray POA Status post Open reduction internal fixation of left proximal femur periprosthetic fracture with placement of bone allograft, evacuation of seroma and hematoma and primary closure over drains 01/23/25 Infrapatellar bursitis per left knee x-ray POA s/p fall POA Uncontrolled hypertension POA Multifactorial anemia POA Acute dehydration POA PLAN: s/p fall POA Minimize central acting medications as possible. Fall Precautions. Well lighted room through the day and minimize interruptions through the night to prevent acute delirium. GENERAL PRECAUTIONS Supplemental 02 as needed BiPAP as necessary, for respiratory distress Titrate Fio2 to keep Spo2 > or = 90% DuoNebs and CPT as needed IS hourly while awake for pulmonary hygiene prn Out of bed to chair as tolerated Maintain aspiration precautions at all times Uncontrolled hypertension POA Follow hemodynamics. Vital signs per facility protocol Continue nutritional support Aspirations precautions Prokinetic agents and laxatives as needed Acute dehydration POA Strict monitoring of intake and output Daily weights Avoid nephrotoxic agents Monitor electrolytes and replace as needed Goal urine output of 30mL/hr or 0.5mL/kg/hr Medications to be dosed according to renal function. Avoid contrast if possible Vitamin-D and serum calcium levels ordered Maintain blood glucose between 100-180 at all times. Insulin sliding scale for blood glucose management Hypoglycemia and hyperglycemia protocol in place Trend temperature, WBC and procalcitonin level Follow cultures, deescalate antibiotics as soon as possible. Panculture if new onset fever TodaMultifactorial anemia POA her hemoglobin has rise to 8.2, and the iron panel studies revealed iron 14 low TIBC and% as of saturation 162, 8.6 respectively so patient started on Venofer.- Monitor H&H. Keep Hgb > 7 Transfuse 1 unit of PRBC for Hgb < 7 Transfuse 1 pack of platelets of platelets < 20, 000 Watch for any signs and symptoms of bleeding Pressure ulcer prevention per facility protocol Specialty mattress as needed ORTHO/REHAB pending Continue PT/OT PRN: MEDICATIONS Tylenol 650 mg po every 4 hrs for fever zofran 4 mg IV every 6 hrs for n/v Hydralazine 5 mg IV every 4 hrs systolic pressure > 160 bowel regiment: lactulose 20 gm PO BID PRN constipation Supportive measures: Continue GI and DVT prophylaxis Disposition: Pending improvement in clinical condition. She is cleared to go to [facility] home by case management services ATTESTATION BY PHYSICIAN I have seen and examined the patient. I reviewed the documentation, medical decision making, and treatment plan as noted by the mid-level provider above. I agree with the findings and plan of care. Pako Solano MD, HARSHA MD Jan 26, 2025 15:39
--- NOTE | 2025-01-26 15:45 | NUR ---
SATHISH SPOKE TO DR. BETH AT 1513 TO POSSIBLY DC SATHISH IN WHICH DR. BETH SAID IT WAS OKAY. WHEN I INFORMED PATIENT THAT I WOULD BE REMOVING IT SHE SAID SHE DIDN'T WANT IT REMOVED FOR AT LEAST FOR ANOTHER 3 DAYS. SHE SAID SHE DIDN'T WANT IT TAKEN OFF BECAUSE SHE WON'T BE ABLE TO GET UP ON TIME TO GO TO THE RESTROOM AND WILL MAKE A MESS. SHE SAID SHE WANTED TO WAIT UNTIL HER SON ARRIVES TOMORROW TO TALK TO HIM. 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 I INFORMED HER THAT I WOULD BE LETTING DR. BETH KNOW ABOUT HER REFUSING DC OF SATHISH AND SHE SAID IT WAS OKAY.
[2025-01-26 16:00] VITALS: BP 136/63; PULSE 77; RESP 18; TEMP 98.4
--- NOTE | 2025-01-26 18:09 | PN ---
Postop day 3. Status post ORIF periprosthetic fracture and degloving injury with primary repair over drains. Vital signs stable, afebrile. The patient was able to walk 30 ft with physical therapy today partial weight- bearing with the use of a walker. I ordered this early afternoon for the patient to have her dressing changed and the drapes removed. As well as the Monroy catheter but everything went well and the nurse did the dressing change and she reports that the incision was healing very well. The drain were removed with a any discomfort or problem. The problem came when she tried to remove the Monroy catheter the patient refusing s tating that she was not able to walk to go to the bathroom to which she was reminded that she was able to walk 30 ft. The patient has been set for home health a already and it was my understanding that the admitting doctors wanted to her to be dismissed but I asked the nurse to hold until I came to see her this evening. I had a very difficult interview with the patient with her stating that she wanted to stay in the hospital for as long as she needed before going home. She stated also that she had already talked to the insurance and they have a shoe her that she can stay for as many days as she wants. I have mentioned to her that because of the fact that she is progressing slowly and is not capable to go home yet he will be ideal for her to go to a nursing rehab for continuation of her rehabilitation and that it would be ideal to have her catheter removed and not sent her with the Monroy. The patient insisted that she was going to stay in the hospital for as long as she wanted until she could go home. We went back on four the about the rehab process and the postop care but she did not want to hear my reason in becoming upset. At this moment I tried to change the conversation and I asked her to allow me to see the incision of the in the new dressing to check her leg and she refused. She told me that her son was coming tomorrow and that he wanted to meet me and talk with me about her case. I told her that I will be very happy to meet with his son and a speak to him. She went back to start discussing with me her reason into stay in the hospital before going home and I told her that it was not going to be my decision at the end and that it was the decision of the attending doctor. I have recommended for her to consider going to nursing rehab but she completely refuses. After I left the room I contacted her son who I understand is a physician but lives at of time. A took the time to call her son and I explained the situation to him and he asked me not to worry and that he will talk to her tomorrow evening and convinced her to go home. The patient's main concern is that her who has Alzheimer's is at home and she needed to be with a him. It is my understanding by her previous comments that her daughter was taking care of her at this time at home. The patient will continue with physical therapy tomorrow and rehabilitation and hopefully I will meet with the patient's son tomorrow evening and hopefully he will be able to make her understand the situation and agrees to go to the nursing rehab. Vitals/Labs Vital Signs Date Time Temp Pulse Resp B/P (MAP) Pulse Ox O2 Delivery O2 Flow Rate FiO2 01/26/25 16:00 98.4 77 18 136/63 95 Room Air 01/26/25 08:00 0 21 Laboratory Tests 01/26/25 04:09 Medications Current Medications Morphine Sulfate 2 mg ONCE IVP Last administered on 01/22/25at 20:05; Start 01/22/25 at 20:00; Stop 01/22/25 at 20:56; Status DC Ondansetron HCl 4 mg ONCE IVP Last administered on 01/22/25at 20:05; Start 01/22/25 at 20:00; Stop 01/22/25 at 20:56; Status DC Morphine Sulfate 4 mg ONCE IVP Last administered on 01/22/25at 20:31; Start 01/22/25 at 20:30; Stop 01/22/25 at 20:56; Status DC Lactated Ringer's 1,000 ml @ 75 mls/hr [id number] IV Last administered on 01/26/25at 17:18; Start 01/22/25 at 21:00; Stop 02/21/25 at 20:59 Acetaminophen 650 mg Q6H PRN PO; Start 01/22/25 at 21:00; Stop 02/21/25 at 20:59 Acetaminophen 650 mg Q6H PRN RC; Start 01/22/25 at 21:00; Stop 02/21/25 at 20:59 Acetaminophen/ Hydrocodone Bitart FOR MODERATE PAIN SC... Q6H PRN PO; Start 01/22/25 at 21:00; Stop 01/24/25 at 19:44; Status DC Lactulose 20 gm Q6H PRN PO; Start 01/22/25 at 21:00; Stop 02/21/25 at 20:59 Docusate Sodium 100 mg BID PRN PO; Start 01/22/25 at 21:00; Stop 02/21/25 at 20:59 Temazepam 15 mg HS PRN PO Last administered on 01/25/25at 22:19; Start 01/22/25 at 21:00; Stop 02/21/25 at 20:59 Ondansetron HCl 4 mg Q6H PRN IVP; Start 01/22/25 at 21:00; Stop 02/21/25 at 20:59 Labetalol HCl 10 mg Q2H PRN IV Last administered on 01/22/25at 22:37; Start 01/22/25 at 21:00; Stop 02/21/25 at 20:59 Hydromorphone HCl 0.5 mg Q4H PRN IVP Last administered on 01/24/25at 19:37; Start 01/22/25 at 21:30; Stop 01/27/25 at 21:29 Insulin Human Regular INSULIN SLIDING SCAL... ACHS SQ; Start 01/22/25 at 21:00; Stop 01/24/25 at 05:27; Status DC Ketorolac Tromethamine 15 mg Q6H PRN IV Last administered on 01/25/25at 09:08; Start 01/22/25 at 21:00; Stop 01/27/25 at 20:59 Famotidine 20 mg BID IV Last administered on 01/23/25at 08:34; Start 01/22/25 at 21:00; Stop 01/24/25 at 00:55; Status DC Simvastatin 20 mg HS PO Last administered on 01/22/25at 21:14; Start 01/22/25 at 21:00; Stop 01/23/25 at 07:08; Status DC Simvastatin 20 mg HS PO Last administered on 01/25/25at 21:03; Start 01/23/25 at 21:00; Stop 02/22/25 at 20:59 Cefazolin Sodium 2 gm STK-MED ONCE .ROUTE; Start 01/23/25 at 19:37; Stop 01/23/25 at 19:38; Status DC Lidocaine HCl 100 mg STK-MED ONCE .ROUTE; Start 01/23/25 at 20:21; Stop 01/23/25 at 20:22; Status DC Propofol 200 mg STK-MED ONCE IV; Start 01/23/25 at 20:21; Stop 01/23/25 at 20:22; Status DC Midazolam HCl 2 mg STK-MED ONCE .ROUTE; Start 01/23/25 at 20:22; Stop 01/23/25 at 20:22; Status DC Rocuronium [place] 50 mg STK-MED ONCE .ROUTE; Start 01/23/25 at 20:22; Stop 01/23/25 at 20:22; Status DC Fentanyl Citrate 100 mcg STK-MED ONCE .ROUTE; Start 01/23/25 at 20:22; Stop 01/23/25 at 20:22; Status DC Rocuronium [place] 50 mg STK-MED ONCE .ROUTE; Start 01/23/25 at 20:52; Stop 01/23/25 at 20:52; Status DC Glycopyrrolate 1 mg STK-MED ONCE .ROUTE; Start 01/23/25 at 21:03; Stop 01/23/25 at 21:03; Status DC Tranexamic Acid 1,000 mg STK-MED ONCE .ROUTE; Start 01/23/25 at 21:06; Stop 01/23/25 at 21:07; Status DC Cefazolin Sodium 1 gm STK-MED ONCE .ROUTE; Start 01/23/25 at 21:06; Stop 01/23/25 at 21:07; Status DC Fentanyl Citrate 100 mcg STK-MED ONCE .ROUTE; Start 01/23/25 at 21:12; Stop 01/23/25 at 21:12; Status DC Phenylephrine HCl 10 mg STK-MED ONCE IV; Start 01/23/25 at 22:37; Stop 01/23/25 at 22:38; Status DC Sodium Chloride 10 ml STK-MED ONCE .ROUTE; Start 01/23/25 at 22:37; Stop 01/23/25 at 22:38; Status DC Dexamethasone Sodium Phosphate 10 mg STK-MED ONCE .ROUTE; Start 01/23/25 at 22:42; Stop 01/23/25 at 22:42; Status DC Ondansetron HCl 4 mg STK-MED ONCE .ROUTE; Start 01/23/25 at 22:42; Stop 01/23/25 at 22:42; Status DC Cefazolin Sodium 2 gm STK-MED ONCE IVPB Last administered on 01/23/25at 20:30; Start 01/23/25 at 20:30; Stop 01/23/25 at 23:36; Status DC Tranexamic Acid 1,000 mg STK-MED ONCE IV Last administered on 01/23/25at 21:10; Start 01/23/25 at 21:10; Stop 01/23/25 at 23:36; Status DC Cefazolin Sodium 3 gm STK-MED ONCE IRRIG Last administered on 01/23/25at 23:28; Start 01/23/25 at 23:28; Stop 01/23/25 at 23:36; Status DC Ropivacaine 150 mg STK-MED ONCE .ROUTE; Start 01/24/25 at 00:15; Stop 01/24/25 at 00:15; Status DC Sodium Chloride 10 ml STK-MED ONCE .ROUTE; Start 01/24/25 at 00:16; Stop 01/24/25 at 00:16; Status DC Sodium Chloride 1,000 ml @ 100 mls/hr Q10H IV Last administered on 01/24/25at 02:34; Start 01/24/25 at 01:00; Stop 01/25/25 at 00:59; Status DC Polyethylene Glycol 17 gm DAILY PO Last administered on 01/26/25at 08:34; Start 01/24/25 at 09:00; Stop 02/23/25 at 08:59 Bisacodyl 10 mg DAILY PRN RC; Start 01/27/25 at 01:00; Stop 02/26/25 at 00:59 Ketorolac Tromethamine 15 mg Q6H PRN IV; Start 01/24/25 at 01:00; Stop 01/24/25 at 00:55; Status DC Famotidine 20 mg BID PO Last administered on 01/26/25at 08:34; Start 01/24/25 at 09:00; Stop 02/23/25 at 08:59 Ferrous Fumarate 324 mg DAILY PRN PO Last administered on 01/25/25at 14:41; Start 01/24/25 at 01:00; Stop 02/23/25 at 00:59 Calcium Carbonate 500 mg Q12H PRN PO; Start 01/24/25 at 01:00; Stop 02/23/25 at 00:59 Diphenhydramine HCl 25 mg Q6H PRN IVP; Start 01/24/25 at 01:00; Stop 02/23/25 at 00:59 Ondansetron HCl 4 mg Q6H PRN IVP; Start 01/24/25 at 01:00; Stop 01/24/25 at 00:55; Status DC Cefazolin Sodium 2 gm Q8H IVP Last administered on 01/24/25at 14:47; Start 01/24/25 at 06:00; Stop 01/24/25 at 14:01; Status DC Potassium Chloride 100 ml @ 100 mls/hr AD PRN IV; Start 01/24/25 at 01:00; Stop 02/23/25 at 00:59 Potassium Chloride 20 meq AD PRN PO; Start 01/24/25 at 01:00; Stop 02/23/25 at 00:59 Potassium Chloride 20 meq AD PRN PO; Start 01/24/25 at 01:00; Stop 02/23/25 at 00:59 Heparin Sodium (Porcine) 5,000 unit Q12H SQ Last administered on 01/26/25at 08:42; Start 01/24/25 at 09:00; Stop 02/23/25 at 08:59 Acetaminophen/ Hydrocodone Bitart 1 tab Q6H PRN PO Last administered on 01/26/25at 10:02; Start 01/24/25 at 22:30; Stop 01/29/25 at 22:29 Acetaminophen/ Hydrocodone Bitart 2 tab Q6H PRN PO Last administered on 01/26/25at 16:05; Start 01/24/25 at 22:30; Stop 01/29/25 at 22:29 Magnesium Hydroxide 30 ml BID PO Last administered on 01/26/25at 08:34; Start 01/25/25 at 21:00; Stop 02/24/25 at 20:59 Iron Sucrose 300 mg/Sodium Chloride 250 ml @ 83 mls/hr ONCE ONCE IV; Start 01/26/25 at 21:00; Stop 01/27/25 at 00:00 FAITH BETH MD Jan 26, 2025 18:09
--- NOTE | 2025-01-26 18:30 | NUR ---
DR BETH CONCERNED ABOUT PATIENT'S DESIRE TO GO HOME. DAUGHTER IN NURSING STATION. PATIENTS CHARACTER/ PERSISTENCE DISCUSSED. PREVIOUSLY INDEPENDENT. ADVISED MD THAT [facility] WAS QUALIFYING DX FOR WR/STR PROGRAM TO TAKE PATIENT PRIOR TO AUTH FROM INSURANCE IF THEY BELIEVE AUTH WILL FOLLOW. DAUGHTER DESCRIBED PT'S PREVIOUSLY INDPENDENT PERSONALITY. DR. BETH AGREED THAT IF PATIENT CONSENT, INPATIENT REHAB WOULD BE IDEAL, SWITH MOST PROGRESS IN SHORTEST AMOUNT OF TIME. DAUGHTER STATES SHE WOULD LOVE TO TALK TO PATIENT AND CM ABOUT IT. DR. BETH ASKED THIS CM TO PLACE ORDER. ADVISED HIM WOULD DO SO FIRST THING IN AM. DAUGHTER HOPEFUL THAT PATIENT WOULD CONSENT TO IRU. WILL ADVISED CM ASSIGNED TO ROOM.
[2025-01-26 20:00] VITALS: BP 140/58; PULSE 84; RESP 16; TEMP 97.9; O2SAT 96
[2025-01-26 23:29] VITALS: BP 141/66; PULSE 76; RESP 16; TEMP 98
[2025-01-27 03:13] VITALS: BP 134/60; PULSE 75; RESP 16; TEMP 98
[2025-01-27 05:07] LABS: IMMATURE GRANULOCYTE ABSOLUTE 0.04 K/uL (0-1); NUCLEATED RED BLOOD CELLS 0.0 % (0.0-0.19); PLATELET COUNT (AUTO) 334 K/uL (130-400); RED BLOOD CELL COUNT(AUTO) 2.36 MIL/uL (4.00-5.50); RED CELL DISTRIBUTION WIDTH 13.7 % (11.0-15.5); WHITE BLOOD COUNT (AUTO) 6.7 K/uL (4.8-10.8)
[2025-01-27 05:26] LABS: CREATININE 0.5 mg/dL (0.5-1.0); GLOMERULAR FILTR. RATE CALC 91.0 mL/min (>90); GLUCOSE,RANDOM 93.0 mg/dL (70-105); SODIUM SERUM 140.0 mmol/L (136-145); UREA NITROGEN, BLOOD 13.0 mg/dL (7-18)
[2025-01-27 07:30] VITALS: O2SAT 96
[2025-01-27 08:00] VITALS: BP 137/57; PULSE 80; RESP 18; TEMP 98
--- NOTE | 2025-01-27 08:16 | NUR ---
ENTERED ORDER FOR IRU [facility] OR [facility] RECOMMENDED BY DR. BETH YESTERDAY. SEE NOTES
[2025-01-27 12:00] VITALS: BP 136/62; PULSE 88; RESP 18; TEMP 98.2
--- NOTE | 2025-01-27 17:33 | NUR ---
DISCHARGE PIV DC'D PATIENT INFORMED THAT I TRIED TO SET UP APPOINTMENT WITH HER PCP BUT THEY SAID THEY'D BE CALLING HER. IF DIFFICULTIES WITH APPOINTMENT I TOLD HER THAT I INFORMED HER NURSE FROM [facility] WOULD BE ABLE TO HELP HER SINCE I INFORMED HER ABOUT THE ISSUE OF SETTING APPOINTMENT. DR. BETH FOLLOW UP APPOINTMENT IN 3 WEEKS ALL QUESTIONS ANSWERED PRIOR TO DISCHARGE
--- NOTE | 2025-01-27 17:50 | DS ---
Discharge Summary Hospital Course Summary: 84-year-old female with history of left hip osteoarthritis status post total hip arthroplasty presented after a fall from a golf cart with acute severe left hip pain. Imaging revealed a markedly displaced periprosthetic fracture of the left proximal femur extending from the intertrochanteric region to the proximal diaphysis. Knee and chest x-ray showed no acute findings. Hospital course included pain management, physical therapy evaluation, case management, and planning for the nursing home rehabilitation. Hemoglobin dropped transiently to 7.5 grams/deciliter but improved to 8.2 Without the need of transfusion. I nitially patient did not agree for discharge saying that she will stay here until his son who is a doctor will come and see her. We finally agreed with her daughter to transfer to a nursing home rehabilitation facility. Catheter was removed. She will follow up with Orthopedic in 1-2 weeks and PCP within 1 week. Home Health Clinical Supervisor(s): [place] [id number] [place] [id number] Postop day 3. Status post ORIF periprosthetic fracture and degloving injury with primary repair over drains. Vital signs stable, afebrile. The patient was able to walk 30 ft with physical therapy today partial weight- bearing with the use of a walker. I ordered this early afternoon for the patient to have her dressing changed and the drapes removed. As well as the Monroy catheter but everything went well and the nurse did the dressing change and she reports that the incision was healing very well. The drain were removed with a any discomfort or problem. The problem came when she tried to remove the Monroy catheter the patient refusing s tating that she was not able to walk to go to the bathroom to which she was reminded that she was able to walk 30 ft. The patient has been set for home health a already and it was my understanding that the admitting doctors wanted to her to be dismissed but I asked the nurse to hold until I came to see her this evening. I had a very difficult interview with the patient with her stating that she wanted to stay in the hospital for as long as she needed before going home. She stated also that she had already talked to the insurance and they have a shoe her that she can stay for as many days as she wants. I have mentioned to her that because of the fact that she is progressing slowly and is not capable to go home yet he will be ideal for her to go to a nursing rehab for continuation of her rehabilitation and that it would be ideal to have her catheter removed and not sent her with the Monroy. The patient insisted that she was going to stay in the hospital for as long as she wanted until she could go home. We went back on four the about the rehab process and the postop care but she did not want to hear my reason in becoming upset. At this moment I tried to change the conversation and I asked her to allow me to see the incision of the in the new dressing to check her leg and she refused. She told me that her son was coming tomorrow and that he wanted to meet me and talk with me about her case. I told her that I will be very happy to meet with his son and a speak to him. She went back to start discussing with me her reason into stay in the hospital before going home and I told her that it was not going to be my decision at the end and that it was the decision of the attending doctor. I have recommended for her to consider going to nursing rehab but she completely refuses. After I left the room I contacted her son who I understand is a physician but lives at of time. A took the time to call her son and I explained the situation to him and he asked me not to worry and that he will talk to her tomorrow evening and convinced her to go home. The patient's main concern is that her who has Alzheimer's is at home and she needed to be with a him. It is my understanding by her previous comments that her daughter was taking care of her at this time at home. The patient will continue with physical therapy tomorrow and rehabilitation and hopefully I will meet with the patient's son tomorrow evening and hopefully he will be able to make her understand the situation and agrees to go to the nursing rehab. Vitals/Labs Vital Signs Date Time Temp Pulse Resp B/P (MAP) Pulse Ox O2 Delivery O2 Flow Rate FiO2 01/26/25 16:00 98.4 77 18 136/63 95 Room Air 01/26/25 08:00 0 21 Laboratory Tests 01/26/25 04:09 Medications Current Medications Morphine Sulfate 2 mg ONCE IVP Last administered on 01/22/25at 20:05; Start 01/22/25 at 20:00; Stop 01/22/25 at 20:56; Status DC Ondansetron HCl 4 mg ONCE IVP Last administered on 01/22/25at 20:05; Start 01/22/25 at 20:00; Stop 01/22/25 at 20:56; Status DC Morphine Sulfate 4 mg ONCE IVP Last administered on 01/22/25at 20:31; Start 01/22/25 at 20:30; Stop 01/22/25 at 20:56; Status DC Lactated Ringer's 1,000 ml @ 75 mls/hr [id number] IV Last administered on 01/26/25at 17:18; Start 01/22/25 at 21:00; Stop 02/21/25 at 20:59 Acetaminophen 650 mg Q6H PRN PO; Start 01/22/25 at 21:00; Stop 02/21/25 at 20:59 Acetaminophen 650 mg Q6H PRN RC; Start 01/22/25 at 21:00; Stop 02/21/25 at 20:59 Acetaminophen/ Hydrocodone Bitart FOR MODERATE PAIN SC... Q6H PRN PO; Start 01/22/25 at 21:00; Stop 01/24/25 at 19:44; Status DC Lactulose 20 gm Q6H PRN PO; Start 01/22/25 at 21:00; Stop 02/21/25 at 20:59 Docusate Sodium 100 mg BID PRN PO; Start 01/22/25 at 21:00; Stop 02/21/25 at 20:59 Temazepam 15 mg HS PRN PO Last administered on 01/25/25at 22:19; Start 01/22/25 at 21:00; Stop 02/21/25 at 20:59 Ondansetron HCl 4 mg Q6H PRN IVP; Start 01/22/25 at 21:00; Stop 02/21/25 at 20:59 Labetalol HCl 10 mg Q2H PRN IV Last administered on 01/22/25at 22:37; Start 01/22/25 at 21:00; Stop 02/21/25 at 20:59 Hydromorphone HCl 0.5 mg Q4H PRN IVP Last administered on 01/24/25at 19:37; Start 01/22/25 at 21:30; Stop 01/27/25 at 21:29 Insulin Human Regular INSULIN SLIDING SCAL... ACHS SQ; Start 01/22/25 at 21:00; Stop 01/24/25 at 05:27; Status DC Ketorolac Tromethamine 15 mg Q6H PRN IV Last administered on 01/25/25at 09:08; Start 01/22/25 at 21:00; Stop 01/27/25 at 20:59 Famotidine 20 mg BID IV Last administered on 01/23/25at 08:34; Start 01/22/25 at 21:00; Stop 01/24/25 at 00:55; Status DC Simvastatin 20 mg HS PO Last administered on 01/22/25at 21:14; Start 01/22/25 at 21:00; Stop 01/23/25 at 07:08; Status DC Simvastatin 20 mg HS PO Last administered on 01/25/25at 21:03; Start 01/23/25 at 21:00; Stop 02/22/25 at 20:59 Cefazolin Sodium 2 gm STK-MED ONCE .ROUTE; Start 01/23/25 at 19:37; Stop 01/23/25 at 19:38; Status DC Lidocaine HCl 100 mg STK-MED ONCE .ROUTE; Start 01/23/25 at 20:21; Stop 01/23/25 at 20:22; Status DC Propofol 200 mg STK-MED ONCE IV; Start 01/23/25 at 20:21; Stop 01/23/25 at 20:22; Status DC Midazolam HCl 2 mg STK-MED ONCE .ROUTE; Start 01/23/25 at 20:22; Stop 01/23/25 at 20:22; Status DC Rocuronium [place] 50 mg STK-MED ONCE .ROUTE; Start 01/23/25 at 20:22; Stop 01/23/25 at 20:22; Status DC Fentanyl Citrate 100 mcg STK-MED ONCE .ROUTE; Start 01/23/25 at 20:22; Stop 01/23/25 at 20:22; Status DC Rocuronium [place] 50 mg STK-MED ONCE .ROUTE; Start 01/23/25 at 20:52; Stop 01/23/25 at 20:52; Status DC Glycopyrrolate 1 mg STK-MED ONCE .ROUTE; Start 01/23/25 at 21:03; Stop 01/23/25 at 21:03; Status DC Tranexamic Acid 1,000 mg STK-MED ONCE .ROUTE; Start 01/23/25 at 21:06; Stop 01/23/25 at 21:07; Status DC Cefazolin Sodium 1 gm STK-MED ONCE .ROUTE; Start 01/23/25 at 21:06; Stop 01/23/25 at 21:07; Status DC Fentanyl Citrate 100 mcg STK-MED ONCE .ROUTE; Start 01/23/25 at 21:12; Stop 01/23/25 at 21:12; Status DC Phenylephrine HCl 10 mg STK-MED ONCE IV; Start 01/23/25 at 22:37; Stop 01/23/25 at 22:38; Status DC Sodium Chloride 10 ml STK-MED ONCE .ROUTE; Start 01/23/25 at 22:37; Stop 01/23/25 at 22:38; Status DC Dexamethasone Sodium Phosphate 10 mg STK-MED ONCE .ROUTE; Start 01/23/25 at 22:42; Stop 01/23/25 at 22:42; Status DC Ondansetron HCl 4 mg STK-MED ONCE .ROUTE; Start 01/23/25 at 22:42; Stop 01/23/25 at 22:42; Status DC Cefazolin Sodium 2 gm STK-MED ONCE IVPB Last administered on 01/23/25at 20:30; Start 01/23/25 at 20:30; Stop 01/23/25 at 23:36; Status DC Tranexamic Acid 1,000 mg STK-MED ONCE IV Last administered on 01/23/25at 21:10; Start 01/23/25 at 21:10; Stop 01/23/25 at 23:36; Status DC Cefazolin Sodium 3 gm STK-MED ONCE IRRIG Last administered on 01/23/25at 23:28; Start 01/23/25 at 23:28; Stop 01/23/25 at 23:36; Status DC Ropivacaine 150 mg STK-MED ONCE .ROUTE; Start 01/24/25 at 00:15; Stop 01/24/25 at 00:15; Status DC Sodium Chloride 10 ml STK-MED ONCE .ROUTE; Start 01/24/25 at 00:16; Stop 01/24/25 at 00:16; Status DC Sodium Chloride 1,000 ml @ 100 mls/hr Q10H IV Last administered on 01/24/25at 02:34; Start 01/24/25 at 01:00; Stop 01/25/25 at 00:59; Status DC Polyethylene Glycol 17 gm DAILY PO Last administered on 01/26/25at 08:34; Start 01/24/25 at 09:00; Stop 02/23/25 at 08:59 Bisacodyl 10 mg DAILY PRN RC; Start 01/27/25 at 01:00; Stop 02/26/25 at 00:59 Ketorolac Tromethamine 15 mg Q6H PRN IV; Start 01/24/25 at 01:00; Stop 01/24/25 at 00:55; Status DC Famotidine 20 mg BID PO Last administered on 01/26/25at 08:34; Start 01/24/25 at 09:00; Stop 02/23/25 at 08:59 Ferrous Fumarate 324 mg DAILY PRN PO Last administered on 01/25/25at 14:41; Start 01/24/25 at 01:00; Stop 02/23/25 at 00:59 Calcium Carbonate 500 mg Q12H PRN PO; Start 01/24/25 at 01:00; Stop 02/23/25 at 00:59 Diphenhydramine HCl 25 mg Q6H PRN IVP; Start 01/24/25 at 01:00; Stop 02/23/25 at 00:59 Ondansetron HCl 4 mg Q6H PRN IVP; Start 01/24/25 at 01:00; Stop 01/24/25 at 00:55; Status DC Cefazolin Sodium 2 gm Q8H IVP Last administered on 01/24/25at 14:47; Start 01/24/25 at 06:00; Stop 01/24/25 at 14:01; Status DC Potassium Chloride 100 ml @ 100 mls/hr AD PRN IV; Start 01/24/25 at 01:00; Stop 02/23/25 at 00:59 Potassium Chloride 20 meq AD PRN PO; Start 01/24/25 at 01:00; Stop 02/23/25 at 00:59 Potassium Chloride 20 meq AD PRN PO; Start 01/24/25 at 01:00; Stop 02/23/25 at 00:59 Heparin Sodium (Porcine) 5,000 unit Q12H SQ Last administered on 01/26/25at 08:42; Start 01/24/25 at 09:00; Stop 02/23/25 at 08:59 Procedure(s): [facility] [address] [place] [address] [id number] IMAGING REPORT Signed PATIENT: MOHSEN LA MR#: [id number] : 1940 SEX: F AGE: 84 LOCATION: EDH ORDER 17 STATUS: REG ER REPORT#: [id number] SERVICE 15 REASON: HIP PAIN WITH SHORTENING OR ROTATION LEFT LEG ORDERING PHYSICIAN: SANTIAGO CHANDRA NP PROCEDURE: HIP U 2V L - HIP UNILAT 2-3VW LEFT EXAM: CR left hip, 2 View. CLINICAL HISTORY: HIP PAIN WITH SHORTENING OR ROTATION LEFT LEG COMPARISON: None provided. FINDINGS: Mildly displaced periprosthetic fracture extending from the intertrochanteric region to the medial cortex of the proximal diaphysis. Recommend CT imaging for further evaluation. IMPRESSION: 1. Mildly displaced periprosthetic fracture of the left proximal femur extending from the intertrochanteric region to the proximal diaphysis. CT imaging recommended for further evaluation. /[place] DICTATED BY: GIULIANO TENA Jr., MD DATE: 01/22/252136 ELECTRONICALLY SIGNED BY: GIULIANO TENA Jr., MD DATE: 01/22/252136 [facility] [address] [id number] IMAGING REPORT Signed PATIENT: MOHSEN LA MR#: [id number] : 1940 SEX: F AGE: 84 LOCATION: EDHIP ORDER 22 STATUS: ADM IN REPORT#: [id number] SERVICE 21 REASON: SOB/COUGH ORDERING PHYSICIAN: SANTIAGO CHANDRA NP PROCEDURE: CXR1VW - CHEST 1VW EXAM: CR Chest, 1 View. CLINICAL HISTORY: SOB/COUGH COMPARISON: None provided. FINDINGS: LUNGS: There is no mass, infiltrate, or acute pulmonary abnormality. PLEURAL SPACES: No pleural effusion or pneumothorax. MEDIASTINUM: Mild cardiomegaly. Pulmonary vasculature and interstitial markings are within normal limits. Atherosclerosis of the thoracic aorta. BONES: No acute osseous abnormality. IMPRESSION: 1. Mild cardiomegaly. /[place] DICTATED BY: GIULIANO TENA Jr., MD DATE: 01/22/252211 ELECTRONICALLY SIGNED BY: GIULIANO TENA Jr., MD DATE: 01/22/252211 [address] [address] IMAGING REPORT Signed PATIENT: MOHSEN LA MR#: [id number] : 1940 SEX: F AGE: 84 LOCATION: EDHIP ORDER 17 STATUS: ADM IN [facility] REPORT#: [id number] SERVICE 15 REASON: LEFT HIP PAIN STATUS POST FALL ORDERING PHYSICIAN: SANTIAGO CHANDRA NP PROCEDURE: PELVIS - PELVIS 1-2VWS EXAM: CR Pelvis, 1 view CLINICAL HISTORY: Pain. Fall. COMPARISON: Radiograph of the left hip from the same date. FINDINGS: Mildly displaced periprosthetic fracture extending from the intertrochanteric region to the medial cortex of the proximal diaphysis. Mild osteopenia. Mild degenerative changes in the right hip, bilateral sacroiliac, and symphysis pubis joints. IMPRESSION: Mildly displaced periprosthetic fracture of the left proximal femur extending from the intertrochanteric region to the proximal diaphysis. Similar findings on the recent radiograph of the left hip. /[place] DICTATED BY: GIULIANO TENA Jr., MD DATE: 01/23/25150 ELECTRONICALLY SIGNED BY: GIULIANO TENA Jr., MD DATE: 01/23/25150 [place] [id number] [place] [address] [id number] IMAGING REPORT Signed PATIENT: MOHSEN LA MR#: [id number] : 1940 SEX: F AGE: 84 LOCATION: EDH ORDER 17 STATUS: REG ER [facility] REPORT#: [id number] SERVICE 15 REASON: LEFT KNEE PAIN STATUS POST SAME LEVEL TRIP FALL ORDERING PHYSICIAN: SANTIAGO CHANDRA WALKING DRAGLINE OPERATOR PROCEDURE: KNEE 3V LT - KNEE 3VWS LT EXAM: CR left knee, 3 View. CLINICAL HISTORY: LEFT KNEE PAIN STATUS POST SAME LEVEL TRIP FALL COMPARISON: None provided. FINDINGS: Cemented left total knee arthroplasty is in near anatomic alignment. No periprosthetic fractures appreciated. Left knee joint effusion. Infrapatellar bursitis. IMPRESSION: 1. No acute findings in the setting of left total knee arthroplasty. 2. Left knee joint effusion and infrapatellar bursitis. /[place] DICTATED BY: GIULIANO TENA Jr., MD DATE: 01/22/252135 ELECTRONICALLY SIGNED BY: GIULIANO TENA Jr., MD DATE: 01/22/252135 Assessment/Plan: ASSESSMENT: Displaced periprosthetic fracture of left proximal femur per hip/pelvis x-ray POA Status post Open reduction internal fixation of left proximal femur periprosthetic fracture with placement of bone allograft, evacuation of seroma and hematoma and primary closure over drains 01/23/25 Infrapatellar bursitis per left knee x-ray POA s/p fall POA Uncontrolled hypertension POA Multifactorial anemia POA Acute dehydration POA PLAN: sDiet To regular diet as tolerated Plenty of fluids unless otherwise restricted Activity Follow physical therapy instructions closely Use a walker or assistive device at all times unless cleared by therapy Avoid sudden twisting, bending or high impact activity Medications Take me pain medications exactly as prescribed Follow-up Orthopedic surgery appointment in 1-2 weeks Primary care provider within1 week of discharge Rehabilitation facility continue physical therapy and mobility training Discharge Instructions: Last admission discharge Diet To regular diet as tolerated Plenty of fluids unless otherwise restricted Activity Follow physical therapy instructions closely Use a walker or assistive device at all times unless cleared by therapy Avoid sudden twisting, bending or high impact activity Medications Take me pain medications exactly as prescribed Follow-up Orthopedic surgery appointment in 1-2 weeks Primary care provider within1 week of discharge Rehabilitation facility continue physical therapy and mobility training Home Medications: Reported Medications Simvastatin (Simvastatin) 20 Mg Tablet, 20 MG PO HS, TAB 01/05/25 Discontinued Reported Medications Simvastatin (Simvastatin) 20 Mg Tablet, 1 TAB PO HS for 30 Days, #30 TAB 0 Refills 01/22/25 Discontinued Scripts Oxycodone HCl/Acetaminophen (Percocet 5-325 mg Tablet) 5 Mg-325 Mg Tablet, 1-2 EACH PO Q8H for ACUTE POST-OP PAIN (G89,18) for 7 Days, #42 TAB 0 Refills Prov:FAITH BETH MD 01/08/25 Aspirin (ASPIRIN 81 MG ECTAB) 81 Mg Ectab, 81 MG PO BID for DVT PROPHYLAXIS for 30 Days, #60 TAB.EC 0 Refills Prov:FAITH BETH MD 01/08/25 Time spent arranging discharge: 1-30 minutes ATTESTATION BY PHYSICIAN I have seen and examined the patient. I reviewed the documentation, medical decision making, and treatment plan as noted by the mid-level provider above. I agree with the findings and plan of care. nancy Solano MD, HARSHA MD Jan 27, 2025 17:50
--- NOTE | 2025-01-29 13:10 | NUR ---
DISCHARGE CALL AFTER READMISSION. SPOKE WITH PATIENT. PATIENT WAS DISCHARGED TO INPATIENT REHAB. REPORTS WORKING WITH PHYSICAL THERAPY 3 TIME TODAY, ANTICIPATES AN 11 DAY STAY. ENCOURAGED PATIENT TO CONFIRM AT DISCHARGE FROM INPATIENT REHAB PAIN MEDICATION AND CLOT PREVENTION MEDICATION ARE PRESCRIBED. PATIENT VERBALIZED UNDERSTANDING. PATIENT UNSURE OF POST-OPERATIVE FOLLOW UP WITH SURGEON. CALLED [facility] FOLLOW UP VISIT ON 02/12/2024 AT 9:40 AM. PROVIDED INFORMATION TO PATIENT.
== END 2025-01-27 17:45 | DRG 481 ==
LOC: EDH 18:10 → EDHIP 20:22 → 4BH 01-23 16:33
PROVIDERS: ADMIT Internal Medicine; ATTEND Internal Medicine
PROC: 0QU70KZ Supplement Left Upper Femur with Nonautologous Tissue Substitute, Open Approach (ICD-10-PCS; 2025-01-23)
PROC: 0QS704Z Reposition Left Upper Femur with Internal Fixation Device, Open Approach (ICD-10-PCS; principal; 2025-01-23 20:18)
DX: S72.002A Fracture of unspecified part of neck of left femur, initial encounter for closed fracture (principal); M97.02XA Periprosthetic fracture around internal prosthetic left hip joint, initial encounter; D64.9 Anemia, unspecified; E86.0 Dehydration; I10 Essential (primary) hypertension; M16.12 Unilateral primary osteoarthritis, left hip; E78.00 Pure hypercholesterolemia, unspecified; Z96.653 Presence of artificial knee joint, bilateral; Z96.642 Presence of left artificial hip joint; W18.42XA Slipping, tripping and stumbling without falling due to stepping into hole or opening, initial encounter; X58.XXXA Exposure to other specified factors, initial encounter; Y93.01 Activity, walking, marching and hiking; Z82.0 Family history of epilepsy and other diseases of the nervous system
CPT/HCPCS: 36415; 71045; 72170; 73502; 73552; 73562; 80048; 80053; 81001; 82306; 82310; 82330; 82607; 82728; 82948; 83036; 83735; 84100; 84443; 85025; 85027; 85610; 85730; 86850; 86900; 86901; 93005; 96374; 96375; 99285; C1713; C9362; G0378; J0690; J1100; J1171; J1644; J1756; J1885; J2003; J2250; J2270; J2371; J2405; J2704; J2795; J3010; J3490; J7050; J7120; A4215; A4649; A4930; C1776

== ENCOUNTER → 2025-03-19 | Emergency (ER) | payer MEDICARE ==
[~2025-03-19] VITALS: Ht 165.1 cm; Wt 65.8 kg
[~2025-03-19] MED LIST changes: -AEC81 PO; -OXYC-38 PO
[2025-03-19 14:29] VITALS: BP 146/65; PULSE 80; RESP 16; TEMP 98.6; O2SAT 96
--- NOTE | 2025-03-19 16:05 | HMCIMG ---
EXAM: CR Chest, and left Rib, 6 View. CLINICAL HISTORY: trauma COMPARISON: None provided. FINDINGS: LUNGS: The visualized lungs appear essentially clear. Heart size, pulmonary vasculature, and interstitial markings are within normal limits. PLEURAL SPACES: No evidence of pneumothorax. No pleural effusion. BONES: No visible acute rib fracture. IMPRESSION: No visible acute rib fracture. No pneumothorax. /[place]
--- NOTE | 2025-03-19 16:14 | ERN ---
ED Note History of Present Illness Stated Complaint: BREAST PAIN Chief Complaint: Breast Problem Time Seen by MD: 14:33 Time Seen by Midlevel: 14:30 Dictation: sHe is 84-year-old female coming in with complaints of left breast pain. Patient states this started about a week ago after a fall. Patient states she had a ground level fall and hit her breast on the ground. Denies any head injury, denies any blood thinners any denies any LOC. Allergies: Coded Allergies: Sulfa (Sulfonamide Antibiotics) (Unverified Allergy, Unknown, 01/05/25) Home Meds Reported Medications Simvastatin (Simvastatin) 20 Mg Tablet, 20 MG PO HS, TAB 01/05/25 Past Medical History Past Medical History: No Pertinent History Additional Past Medical Hx: denies pmhx Surgical History: Other Surgical History Other: left hip sx History: Not Applicable Review of System Dictation Constitutional: Negative for fever,chills, and weight loss Eyes: Negative for injury, pain,redness, and discharge ENT: Negative for injury,pain or swelling Cardiovascular: Negative for chest pain, palpitations, and edema left breast/chest wall pain Respiratory: Negative for shortness of breath, cough, and wheezing, Abdomen/GI: Negative for abdominal pain, nausea, vomiting, diarrhea, and constipation Back: Negative for injury and pain : Negative for injury, bleeding and discharge MS/Extremity: Negative for injury and deformity Skin: Negative for rash, and discoloration Neuro: Negative for headache, weakness, numbness, tingling, and seizure Psych: Negative for suicide ideation, homicidal ideation, and hallucinations Review of Systems: was completed Initial Vital Sign VS Vital Signs Date Time Temp Pulse Resp B/P (MAP) Pulse Ox O2 Delivery O2 Flow Rate FiO2 03/19/25 14:26 98.6 80 16 146/65 96 0 03/19/25 14:29 Room Air* 21 Physical Exam Dictation General: awake, alert, NAD Head/Face: Normocephalic, atraumatic Eyes: PERRL, EOMI, vision at baseline ENT: oral cavity clear, TMs clear, no signs of infection Neck: Trachea midline, supple, no nuchal rigidity Cardiovascular: RRR, normal S1/S2, No MRGs, no JVD, breast is soft, no bruising no injury noted. Respiratory: CTAB, no respiratory distress, No rales or wheezes Abdomen: Soft, non-tender, non-distended, normal bowel sounds, no guarding or rebound. Skin: Warm, dry, normal turgor, no rash MS/Extremity: Pulses equal, no cyanosis, neurovascular intact, FROM Neuro: COAx4, GCS 15, strength 5/5, CN 2-12 intact, normal cerebellar exam, normal gait, Psych: Normal behavior, mood, and affect normal Results (Laboratory/Radiology) X-RAY Comment: [address] [place] [id number] IMAGING REPORT Signed PATIENT: OMHSEN LA MR#: [id number] : 1940 SEX: F AGE: 84 LOCATION: EDH ORDER 44 STATUS: [facility] ER REPORT#: [id number] SERVICE 42 REASON: trauma ORDERING PHYSICIAN: MAHENDRA WESTON PROCEDURE: RIB LT W C - RIBS UNI LT W PA CHEST 3+VWS EXAM: CR Chest, and left Rib, 6 View. CLINICAL HISTORY: trauma COMPARISON: None provided. FINDINGS: LUNGS: The visualized lungs appear essentially clear. Heart size, pulmonary vasculature, and interstitial markings are within normal limits. PLEURAL SPACES: No evidence of pneumothorax. No pleural effusion. BONES: No visible acute rib fracture. IMPRESSION: No visible acute rib fracture. No pneumothorax. /[place] DICTATED BY: GIULIANO TENA Jr., MD DATE: 03/19/251703 ELECTRONICALLY SIGNED BY: GIULIANO TENA Jr., MD DATE: 03/19/251703 ED Course ED Course Orders Procedure Category Date Status Time Ribs Uni Lt W Pa RAD 03/19/25 Resulted Chest 3+Vws 14:43 Vital Signs Date Time Temp Pulse Resp B/P (MAP) Pulse Ox O2 Delivery O2 Flow Rate FiO2 03/19/25 14:29 98.6 80 16 146/65 96 Room Air* 0 21 03/19/25 14:26 98.6 80 16 146/65 96 0 Medical Decision Making MDM MDM: sHe is 84-year-old female coming in with complaints of left breast pain. Patient states this started about a week ago after a fall. Patient states she had a ground level fall and hit her breast on the ground. Denies any head inj ury, denies any blood thinners any denies any LOC. denies having any chest pressure, chest discomfort, shortness a breath, back pain or jaw pain. on physical exam left breast is intact, soft, no ecchymosis, no masses palpated. Patient states there is pain when I palpate the left chest wall where she has a breast. Discussed with the patient possibility of a rib fracture. X-ray shows no acute finding. Educated patient to follow up with the PCP return to the hospital as needed. Differential diagnosis: Breast contusion, chest contusion, rib fracture Rationale: Tests considered and ordered secondary to shared decision making include: Previous outside records reviewed: Old ER visits. Risk of complication and/or morbidity or mortality of patient management: None Medications-Per medication reconciliation Need for hospitalization: Patient does not meet criteria for hospitalization. Need for emergency major/minor surgery: No There are no social concerns with this patient. Prescription drug management Prescriptions will include symptomatic care Patient's prior external medical records from other ER visits were reviewed by me as indicated. Prior testing and results from previous visits were reviewed. Prior tests were taken into account with medical decision making and resource utilization, independent historian/historians were used to obtain complete medical history. I independently interpreted the test that were performed, results were reviewed by me and considered findings on radiology if ordered. Medical management and examination interpretation discussions were had by me with other qualified healthcare professionals as indicated for the patient's care. DX & DISP Disposition: Discharge Departure Impression: Primary Impression: Chest wall pain Additional Impression: Fall Condition: Stable Additional Instructions: Tylenol [id number] for pain control follow up with your primary doctor. Referrals: ABRIL SALDANA MD (PCP) Time of Disposition: 16:13 I have reviewed the case, Diagnosis and Plan MAHENDRA WESTON Mar 19, 2025 16:14
--- NOTE | 2025-03-19 16:41 | NUR ---
patient left the er dept without dc paperwork
== END ==
LOC: EDH 14:21
DX: R07.89 Other chest pain (principal); Z88.2 Allergy status to sulfonamides; W18.39XA Other fall on same level, initial encounter; Y93.89 Activity, other specified; Y92.89 Other specified places as the place of occurrence of the external cause; Y99.8 Other external cause status
CPT/HCPCS: 71101; 99283